=== PATIENT | male | born 1930 | race Caucasian/White ===

== ENCOUNTER 2017-03-10 11:36 | Inpatient (IN) | payer OTHER ==
[~2017-03-10] VITALS: Ht 165.1 cm; Wt 103.4 kg
[~2017-03-10 11:36] MED LIST: ALL300 PO; ASPI81TA21 PO; CALC0.5C17 PO; CARV12.52 PO; CHOL100027 PO; FERR-24 PO; FISHOIL PO; HYDR-5688 PO; ISOS30TA35 PO; LEVO100T7 PO; MULTTAB58 PO; NVLGI7030 SC; OMEP40CA36 PO; SIMV20TA2 PO; TORS20TA2 PO
[2017-03-10] MEDS ORDERED: OXYCODONE HCL IR 5 MG TAB (IMMEDIATE RELEASE) PO STA (12:14)
--- NOTE | 2017-03-10 12:20 | EMERGENCY ROOM VISIT NOTE ---
History First contact with patient: 12:04 Chief Complaint: HIP PAIN Stated Complaint: FALL/EVALUATION History of Present Illness The patient is a 86 year old male who presents to the Emergency Room via ambulance accompanied by male with complaints of "fall/hip pain". The patient states that he is here for hip pain, but also notes that he developed chest pain in the left anterior chest on Thursday, with minimal shortness of breath as well as generalized abdominal fullness. He states that yesterday using his power lift chair, he believes he lifted it up to high, causing him to slide out of the chair falling down onto gluteal region/back. He now notes pain in the right hip. He rates the pain as a 10/10. He has taken [place] this morning without relief of this pain. He denies striking his head, loss of consciousness or syncope. He does have a history of diabetes, bypass, a leaky heart valve, but denies any heart attack history. Review of Systems A complete 10-point Review of Systems was discussed with the patient, with pertinent positives and negatives listed in the History of Present Illness. All remaining Review of Systems questions can be considered negative unless otherwise specified. 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 (15) H/O gastric ulcer (16) Methicillin resistant Staphylococcus aureus infection (17) NII (obstructive sleep apnea) Surgical Problems: (1) History of cholecystectomy (2) History of total hip replacement (3) S/P CABG x 3 (4) S/P cataract surgery Family History Omitted secondary to age Social History Smoking Status: Former Smoker Alcohol Use: none Marital Status: , Housing Status: lives alone Occupation Status: retired Current/Historical Medications Scheduled Allopurinol (Allopurinol), 300 MG PO QAM Aspirin Enteric Coated (Ecotrin Or Generic), 81 MG PO QAM Calcitriol (Rocaltrol Cap), 0.25 MCG PO 2XWK Carvedilol (Coreg), 1 TAB PO DAILY Cholecalciferol (Vitamin D 1000 Unit), 2,000 INTER.UNIT PO QAM Docusate Sodium (Colace), 100 MG PO BID Hydrocodone/Acetaminophen 5MG/325MG ([place] 5MG/325MG), 1 TABLET PO 5XD Insulin Aspart 70/30 (Novolog Mix 70/30), 10 UNITS SC BID Iron-Vitamin C (Vitron-C), 1 TAB PO BID Isosorbide Mononitrate Ext Rel (Imdur Ext Rel), 30 MG PO QAM Levothyroxine Sodium (Levothyroxine Sodium), 100 MCG PO QAM Multiple Vitamin (Multivitamin), 1 TAB PO QAM [place]-3 Fatty Acids (Fish Oil), 1 CAP PO DAILY Omeprazole (Prilosec), 40 MG PO DAILY Simvastatin (Zocor), 20 MG PO QPM Sulfamethoxazole-Trimethoprim (Smz-Tmp Ds), 1 TAB PO BID Torsemide (Demadex), 40 MG PO DAILY Scheduled PRN Trolamine Salicylate (Aspercreme), TOP DAILY PRN for Pain Miscellaneous Medications Menthol-Zinc Oxide (Calmoseptine) Sodium Chloride (Inhalant) (Nasal Mist) Physical Exam Vital Signs Date Time Temp Pulse Resp B/P (MAP) Pulse Ox O2 Delivery O2 Flow Rate FiO2 03/10/17 15:26 97 24 152/63 94 Room Air 03/10/17 13:45 100 18 146/75 94 Room Air 03/10/17 13:03 100 03/10/17 12:23 94 Room Air 03/10/17 11:42 36.8 96 18 110/77 94 Room Air Physical Exam VITAL SIGNS - Vital signs and nursing notes were reviewed. Patient is afebrile , normotensive, non-tachycardic and saturating well on room air at 94%. GENERAL -86-year-old male appearing his stated age who is in no acute distress. Communicates well with provider and answers questions appropriately. SKIN - Without rashes. No petechial rashes. HEAD - NC/AT. EYES - PERRL with EOMI bilaterally. Sclera anicteric. EARS - No deformities of external structures noted on gross examination bilaterally. No pain elicited with palpation of the tragus bilaterally. NOSE - Midline and without cyanosis. No epistaxis or purulent drainage noted. Septum midline without deviation or septal hematoma noted. MOUTH/OROPHARYNX - Without perioral cyanosis. Buccal mucosa pink and moist and without leukoplakia. NECK - Neck with FROM. Supple to palpation. No nuchal rigidity. LUNGS - Chest wall symmetric without accessory muscle use, intercostals retractions, or central cyanosis. Normal vesicular breath sounds CTA B/L. No wheezes, rales, or rhonchi appreciated. CARDIAC - RRR with S1/S2. No murmur, rubs, or gallops appreciated. ABDOMEN - Abdominal contour without pulsations or visible masses. BS normoactive all four quadrants. There is generalized abdominal tenderness, but no palpable masses, hepatosplenomegaly, or ascites noted. EXTREMITIES - No clubbing or peripheral cyanosis. No pretibial edema present. + 5/5 strength noted in UE/LE bilaterally. NEUROLOGIC - Cranial nerves II through XII grossly intact. Sensory intact to light touch throughout. PSYCH - A&Ox3 and cooperates fully with examiner. Pt is very pleasant and interacts well with examiner. Medical Decision & Procedures ER Provider Diagnostic Interpretation: RIGHT PELVIS/UNILATERAL HIP 2-3VIEWS CLINICAL HISTORY: 86 years-old Male presenting with Fall, right hip pain Right. TECHNIQUE: Single frontal view of the pelvis and frontal and frog-leg lateral views of the right hip were obtained. COMPARISON: Correlation made to CT from 2012. FINDINGS: Postsurgical changes of total left hip arthroplasty. Since lucency along the left acetabulum is not significantly changed from 2012. No other hardware complication evident. Advanced, severe degenerative change of the right hip joint with deformity of the femoral head, complete loss of joint space, subchondral sclerosis both of the femoral head and acetabulum and subchondral cystic change. Allowing for the significant deformity, no displaced fracture is apparent. Visualized pelvis demonstrates congruent pubic symphysis and sacroiliac joints. Gaseous distention of colon. Atherosclerosis. IMPRESSION: 1. Allowing for the severe degenerative change in the right hip joint, no convincing evidence of acute fracture. 2. Postsurgical changes of left total hip arthroplasty. Lucency along the acetabulum may suggest osteolysis/particle disease. This appearance is not significantly changed since 2011. Electronically signed by: Sebastián Fulton M.D. 03/10/2017 1:33 PM Dictated Date/Time: 03/10/2017 1:30 PM Laboratory Results 03/10/17 12:36 Red Blood Count 3.88, Mean Corpuscular Volume 98.5, Mean Corpuscular Hemoglobin 32.2, Mean Corpuscular Hemoglobin Concent 32.7, Mean Platelet Volume 12.7, Neutrophils (%) (Auto) 91.0, Lymphocytes (%) (Auto) 3.5, Monocytes (%) (Auto) 4.7, Eosinophils (%) (Auto) 0.1, Basophils (%) (Auto) 0.2, Neutrophils # (Auto) 15.03, Lymphocytes # (Auto) 0.58, Monocytes # (Auto) 0.78, Eosinophils # (Auto) 0.02, Basophils # (Auto) 0.04 03/10/17 12:36 Test 03/10/17 12:21 03/10/17 12:36 Urine Color DK YELLOW Urine Appearance CLOUDY (CLEAR) Urine pH 5.0 (4.5-7.5) Urine Specific [place] 1.026 (1.000-1.030) Urine Protein 2+ (NEG) Urine Glucose (UA) NEG (NEG) Urine Ketones NEG (NEG) Urine Occult Blood TRACE (NEG) Urine Nitrite NEG (NEG) Urine Bilirubin 1+ (NEG) Urine Urobilinogen NEG (NEG) Urine Leukocyte Esterase SMALL (NEG) Urine WBC (Auto) 10-30 /hpf (0-5) Urine RBC (Auto) 0-4 /hpf (0-4) Urine Hyaline Casts (Auto) 10-30 /lpf (0-5) Urine Epithelial Cells (Auto) >30 /lpf (0-5) Urine Bacteria (Auto) NEG (NEG) Urine Renal Epithelial Cells 0-5 /lpf (0-5) Urine Pathogenic Casts 0-3 GRANULAR CASTS /lpf (0) Urine Yeast (Auto) BUD W/ HYPHAE (NONE PRSENT) White Blood Count 16.54 K/uL (4.8-10.8) Red Blood Count 3.88 M/uL (4.7-6.1) Hemoglobin 12.5 g/dL (14.0-18.0) Hematocrit 38.2 % (42-52) Mean Corpuscular Volume 98.5 fL (80-100) Mean Corpuscular Hemoglobin 32.2 pg (25-34) Mean Corpuscular Hemoglobin Concent 32.7 g/dl (32-36) Platelet Count 140 K/uL (130-400) Mean Platelet Volume 12.7 fL (7.4-10.4) Neutrophils (%) (Auto) 91.0 % Lymphocytes (%) (Auto) 3.5 % Monocytes (%) (Auto) 4.7 % Eosinophils (%) (Auto) 0.1 % Basophils (%) (Auto) 0.2 % Neutrophils # (Auto) 15.03 K/uL (1.4-6.5) Lymphocytes # (Auto) 0.58 K/uL (1.2-3.4) Monocytes # (Auto) 0.78 K/uL (0.11-0.59) Eosinophils # (Auto) 0.02 K/uL (0-0.5) Basophils # (Auto) 0.04 K/uL (0-0.2) RDW Standard Deviation 52.0 fL (36.4-46.3) RDW Coefficient of Variation 14.7 % (11.5-14.5) Immature Granulocyte % (Auto) 0.5 % Immature Granulocyte # (Auto) 0.09 K/uL (0.00-0.02) Prothrombin Time 11.5 SECONDS (9.0-12.0) Prothromb Time International Ratio 1.1 (0.9-1.1) Activated Partial Thromboplast Time 29.2 SECONDS (21.0-31.0) Partial Thromboplastin Ratio 1.1 Anion Gap 7.0 mmol/L (3-11) Est Creatinine Clear Calc Drug Dose 27.2 ml/min Estimated GFR () 30.5 Estimated GFR (Non- 26.3 BUN/Creatinine Ratio 14.7 (10-20) Calcium Level 9.4 mg/dl (8.5-10.1) Magnesium Level 1.9 mg/dl (1.8-2.4) Total Bilirubin 0.8 mg/dl (0.2-1) Aspartate Amino Transf (AST/SGOT) 30 U/L (15-37) Alanine Aminotransferase (ALT/SGPT) 43 U/L (12-78) Alkaline Phosphatase 222 U/L (45-117) Total Creatine Kinase 82 U/L (39-308) Pro-B-Type Natriuretic Peptide 53650 pg/ml (0-1800) Total Protein 7.0 gm/dl (6.4-8.2) Albumin 3.0 gm/dl (3.4-5.0) Globulin 4.0 gm/dl (2.5-4.0) Albumin/Globulin Ratio 0.8 (0.9-2) Thyroid Stimulating Hormone (TSH) 0.918 uIu/ml (0.300-4.500) Medications Administered Medications (Trade) Dose Ordered Sig/Leonarda Route Start Time Stop Time Status Last Admin Dose Admin Oxycodone HCl (Roxicodone Immediate Rel Tab) 5 mg NOW STAT PO 03/10/17 12:14 03/10/17 12:17 DC 03/10/17 12:14 5 MG Aspirin (Aspirin Chew) 162 mg NOW STAT PO 03/10/17 14:57 03/10/17 14:59 DC 03/10/17 15:26 162 MG Medical Decision Patient was seen and evaluated as above. After obtaining a thorough history and physical examination IV access was initiated, and the above workup was performed. The patient presented to us today with hip pain, but also chest pain , shortness of breath and fluid overload. Patient does take Lasix, but did not take his dose today. His bedside EKG does appear slightly changed compared to previous, reveals wide QRS, left axis deviation, right bundle-branch block, and concern for LVH. No active [facility] [place] this time. The troponin is elevated, 160 mg of chewable aspirin was ordered. BNP was also above 19,000. Chest x-ray and abdominal series is negative for central acute process. The concern at this time is that the patient will need further evaluation inpatient setting regarding his presentation. Right radiographs unremarkable. CBC reveals significant leukocytosis at 16.54, hemoglobin low at 12.5. Coags unremarkable. BMP reveals sodium low at 131, chloride low at 96, creatinine high at 2.2, random glucose high at 261, alkaline phosphatase high at 222, BNP at 19,670. Troponin again at 0.168. Urine reveals small leukocytosis, white blood cells, hyalin casts, epithelial cells likely secondary to contamination. The case was discussed with the attending physician, the decision was made to admit the patient for further evaluation and management. I also consult cardiology to further evaluate the patient over concern for [facility] [place]. Dr. Thao was consult at 3:15 PM. Please refer to further documentation regarding the patient's stay. In evaluation treatment this patient following differential diagnoses were entertained: Hip fracture, contusion, AL, PE, CHF exacerbation, among others. I personally reviewed the patient's medication list. The patient's blood pressure today was normal at 110/77. Impression Primary Impression: Hip pain Additional Impressions: Chest pain Anemia Shortness of breath Elevated brain natriuretic peptide (BNP) level Troponin I above reference range Departure Information Referrals Rl Benitez M.D. (PCP) Patient Instructions My [facility] Problem Qualifiers
[2017-03-10 12:36] LABS: URINE APPEARANCE CLOUDY (CLEAR); URINE COLOR DK YELLOW; URINE EPITHELIAL CELL AUTO >30 /lpf (0-5); URINE NITRITE NEG (NEG); URINE SPECIFIC GRAVITY 1.026 (1.000-1.030); UROBILINOGEN NEG (NEG); ZZUR CULT IF INDIC CLEAN CATCH YES
[2017-03-10 12:47] LABS: HEMATOCRIT 38.2 % (42-52); MEAN CELL VOLUME 98.5 fL (80-100); MEAN CORPUSCULAR HEMOGLOBIN 32.2 pg (25-34); MEAN CORPUSCULAR HGB CONC 32.7 g/dl (32-36); MEAN PLATELET VOLUME 12.7 fL (7.4-10.4); PLATELET COUNT 140 K/uL (130-400); RED BLOOD COUNT 3.88 M/uL (4.7-6.1); WHITE BLOOD COUNT 16.54 K/uL (4.8-10.8)
[2017-03-10 12:52] LABS: MANUAL MICROSCOPIC REQUIRED? NO; REVIEW REQ? YES; URINE BILIRUBIN 1+ (NEG)
[2017-03-10] MEDS ORDERED: DOCU-94 PO (12:55)
[2017-03-10] MEDS ORDERED: TROL10LO TOP (12:55)
[2017-03-10] MEDS ORDERED: [UNRECOGNIZED DRUG - CODE] (12:55)
[2017-03-10] MEDS ORDERED: CALC0.25 PO (12:55)
[2017-03-10] MEDS ORDERED: SULF-183 PO (12:55)
[2017-03-10] MEDS ORDERED: MENTOIN (12:55)
[2017-03-10] MEDS ORDERED: FERRTAB18 PO (12:55)
[2017-03-10] MEDS ORDERED: OMEP40CA41 PO (12:55)
[2017-03-10] MEDS ORDERED: OMEGCAP2 PO (12:55)
[2017-03-10 12:58] LABS: INR 1.1 (0.9-1.1); PARTIAL THROMBOPLASTIN RATIO 1.1; PROTHROMBIN TIME (PATIENT) 11.5 SECONDS (9.0-12.0)
[2017-03-10 13:03] LABS: URINE PATH CASTS 0-3 GRANULAR CASTS /lpf (0)
[2017-03-10 13:05] LABS: BUN/CREATININE RATIO 14.7 (10-20); CALCIUM 9.4 mg/dl (8.5-10.1); CREATININE 2.2 mg/dl (0.60-1.40); MAGNESIUM 1.9 mg/dl (1.8-2.4); POTASSIUM 4.3 mmol/L (3.5-5.1)
[2017-03-10 13:08] LABS: BASO % 0.2 %; BASO ABS # 0.04 K/uL (0-0.2); COMPLETE YES; EOS % 0.1 %; IG% 0.5 %; LYMPH % 3.5 %; LYMPH ABS # 0.58 K/uL (1.2-3.4); MONO % 4.7 %
[2017-03-10 13:15] LABS: ALB/GLOB RATIO 0.8 (0.9-2); CKMB/CK RATIO 1.5 (0-3.0); THYROID STIMULATING HORMONE 0.918 uIu/ml (0.300-4.500)
--- NOTE | 2017-03-10 13:34 | DIAGNOSTIC IMAGING REPORT ---
RIGHT PELVIS/UNILATERAL HIP 2-3VIEWS CLINICAL HISTORY: 86 years-old Male presenting with Fall, right hip pain Right. TECHNIQUE: Single frontal view of the pelvis and frontal and frog-leg lateral views of the right hip were obtained. COMPARISON: Correlation made to CT from 2012. FINDINGS: Postsurgical changes of total left hip arthroplasty. Since lucency along the left acetabulum is not significantly changed from 2012. No other hardware complication evident. Advanced, severe degenerative change of the right hip joint with deformity of the femoral head, complete loss of joint space, subchondral sclerosis both of the femoral head and acetabulum and subchondral cystic change. Allowing for the significant deformity, no displaced fracture is apparent. Visualized pelvis demonstrates congruent pubic symphysis and sacroiliac joints. Gaseous distention of colon. Atherosclerosis. IMPRESSION: 1. Allowing for the severe degenerative change in the right hip joint, no convincing evidence of acute fracture. 2. Postsurgical changes of left total hip arthroplasty. Lucency along the acetabulum may suggest osteolysis/particle disease. This appearance is not significantly changed since 2012. Electronically signed by: Sebastián Fulton M.D. 03/10/2017 1:33 PM Dictated Date/Time: 03/10/2017 1:30 PM
--- NOTE | 2017-03-10 13:45 | DIAGNOSTIC IMAGING REPORT ---
ABDOMEN 2VIEW W/PA CHEST RTN HISTORY: 86 years-old Male Chest pain, abdominal fullness COMPARISON: Portable chest radiograph 09/09/2015, CT 01/26/2012 TECHNIQUE: AP, left lateral decubitus and supine views of the abdomen were obtained FINDINGS: Cardiac silhouette is again moderately enlarged. There is tortuosity and atherosclerosis of the thoracic aorta. Prior median sternotomy. There is no pneumothorax. There is chronic blunting of the right costophrenic angle with right hemidiaphragmatic elevation suggesting underlying scarring/atelectasis. There is suggested subsegmental atelectasis of the left lung base. Mild central vascular congestion persists without overt pulmonary edema. No pneumoperitoneum identified. There is mild gaseous distention of both small and large bowel with a nonobstructive bowel gas pattern. Phleboliths are seen within the pelvis. Calcifications are seen within the midabdomen bilaterally within the expected region of the kidneys suggesting nephrolithiasis. Left hip arthroplasty noted. There is severe joint space narrowing on the right with subcortical cystic changes and subchondral sclerosis. Vascular calcifications are seen bilaterally. IMPRESSION: 1. Moderate cardiomegaly with mild pulmonary vascular congestion. No overt pulmonary edema. 2. Chronic bibasilar scarring/atelectasis with right hemidiaphragmatic elevation. 3. Gaseous distention of small and large bowel without bowel obstruction or pneumoperitoneum. 4. Probable bilateral nephrolithiasis. 5. Severe degenerative changes of the right hip. The above report was generated using voice recognition software. It may contain grammatical, syntax or spelling errors. Electronically signed by: Ludin Can M.D. 03/10/2017 1:43 PM Dictated Date/Time: 03/10/2017 1:38 PM
[2017-03-10] MEDS ORDERED: ASPIRIN 81 MG CHEW PO STA (14:57)
[2017-03-10] MEDS ORDERED: ACETAMINOPHEN 325 MG TAB PO PRN (16:15)
[2017-03-10] MEDS ORDERED: ONDANSETRON INJ 2 MG/ML 2 ML VIAL IV PRN (16:15)
[2017-03-10] MEDS ORDERED: NITROGLYCERIN 0.4 MG SL PER TAB CHARGE SL PRN (16:15)
--- NOTE | 2017-03-10 16:35 | CARDIOLOGY CONSULTATION ---
DATE OF CONSULTATION: 03/10/2017 DATE OF CONSULTATION: 03/10/2017 REFERRING PHYSICIAN: Sergey Soliman. INDICATIONS: Weakness, falls, abnormal laboratory studies. HISTORY OF PRESENT ILLNESS: The patient is a complex 86-year-old male with past cardiac history of ischemic heart disease, status post coronary bypass grafting x3 in 2000, receiving a MORALES graft to the left anterior descending, saphenous vein graft to the obtuse marginal, saphenous vein graft to the right coronary artery, history of chronic atrial flutter with borderline tachybrady syndrome not anticoagulated due to multiple issues, moderate atherosclerotic carotid disease, chronic renal insufficiency, chronic anemia, hypertension, hyperlipidemia and diabetes mellitus as list of multiple issues. The patient presents now noting gradual decline over the past several weeks. He notes a fall x2 approximately 3 weeks ago with injury to his right hip and shoulder. He was initially treated for his fall and begun on physical therapies. In the course of evaluation, he was also treated for hemorrhagic cystitis on antibiotic therapies per reports. The patient, however, over the last 2-3 days has been feeling more weak with poor p.o. intake and lack of appetite. Notes no overt fevers or chills. Last evening while using a lift chair to urinate he fell from lift chair and suffered additional injuries. He was scheduled to be seen by physicians today but was "too weak to stand". He was referred to the Emergency Room for further evaluation. He notes chest pains and aches with movement. Notes no distinct anginal symptoms. Has had some increasing lower extremity and flank and leg edema. Weight has been unable to be weighed since fall 3 weeks ago. He has been taking medications as prescribed, though was having difficulty taking antibiotics as well as some of his heart medications due to poor p.o. intake. Notes no overt fevers, notes no melena, hematochezia, dysuria or hematuria. Notes no headache or visual changes. Has had some burning on urination which has eased but not completely relieved with recent antibiotic therapy. ALLERGIES: PENICILLIN. MEDICATIONS: Per list were Bactrim-DS 800/160 one tablet b.i.d. begun on 03/02/2017 for 10-day duration, hydrocodone p.r.n. pain on 02/22/2017, allopurinol 300 mg p.o. daily, levothyroxine 100 mcg per day, torsemide 40 mg daily, isosorbide mononitrate 30 mg daily, simvastatin 20 mg p.o. daily, Vitron C 65/125 q. day, omeprazole 40 mg p.o. q. day, Rocaltrol 0.25 mcg every day, carvedilol 3.125 mg q. day, oxygen 2 liters nasal cannula, Novolin insulin 70/30 10 units twice per day, aspirin 81 mg per day, vitamin D and fish oil supplements. PAST SURGICAL HISTORY: Notable for prior cataract extraction, cholecystectomy, left total hip replacement. FAMILY HISTORY: Noncontributory. SOCIAL HISTORY: The patient resides independently with son. He is a nonsmoker but with a [id number] history discontinued in 1964. Uses no significant alcoholic beverages. Attempts to follow diet appropriately, though as noted recent oral intake declined. PHYSICAL EXAMINATION: GENERAL: The patient is a chronically ill appearing male without acute distress currently. VITAL SIGNS: Heart rate is 97, blood pressure is 152/63. NECK: Thick. There is mild jugular venous distention at 30 degrees. LUNGS: Reveal diminished breath sounds in all lung ybarra. CARDIOVASCULAR EXAMINATION: Irregularly irregular with a grade 2/6 systolic murmur. ABDOMEN: Soft with moderate distention. There is no rebound or guarding. EXTREMITIES: Without cyanosis or clubbing. Lower extremities reveal 2-3+ edema both lower extremities extending up to the hips. There are intact distal pulses at 2/4. There is no skin breakdown. NEUROLOGIC: The patient is answering questions, moving extremities with some weakness, no focal deficits discerned. LABORATORY DATA: White cell count 16.5, hemoglobin is 12.5, hematocrit 38.2, platelet count 140. Sodium is 131, potassium is 4.3, chloride 96, bicarb is 28, BUN is 32, creatinine is 2.2, glucose is 261, AST and ALT are normal. BNP is elevated at 19,671, troponin is 0.168. TSH is 0.918. Chest x-ray on personal review reveals cardiomegaly, mild increase in interstitial markings, though no overt pulmonary edema. Abdominal films reveal distention of the small and large bowel without obstruction. EKG reveals atrial flutter with elevated ventricular response rate, rate 104 with right bundle branch block, left anterior fascicular block. IMPRESSION: The patient is an 86-year-old male with a very complex histories presents now with gradual acute on gradual decline been initiated initially with 2 falls 3 weeks ago followed by an additional fall last evening, now patient presents now with main complaint being weakness, unable to stand, generalized decline over the several days. He does admit to some occasional episodes of chest discomfort as well as some increasing lower extremity edema and abdominal bloating. Lab work is abnormal with mildly elevated troponin, though possibly in association with elevated creatinine. BNP is elevated, though x-ray does not suggest overt pulmonary edema, lower extremity edema is present. RECOMMENDATIONS: Will treat for multifactorial decline. Would recommend cultures given elevated white cell count to exclude ongoing infectious process. Would increase carvedilol cautiously to 3.125 mg twice per day given history of past borderline tachybrady for heart rate control. A small amount of diuretics will be begun initially. Echocardiogram will be ordered. Serial enzymes and EKGs followed. The patient appears agreeable to plan. Will follow the patient.
[2017-03-10] MEDS ORDERED: CARV3.122 PO (16:39)
[2017-03-10] MEDS ORDERED: DEXTROSE 50% 50 ML SYR IV PRN (17:15)
[2017-03-10] MEDS ORDERED: GLUCOSE 10 TABS/TUBE PO PRN (17:15)
[2017-03-10] MEDS ORDERED: GLUCOSE 40% GEL 15 GM TUBE PO PRN (17:15)
[2017-03-10] MEDS ORDERED: GLUCAGON FOR INJ 1 MG VIAL SQ PRN (17:15)
[2017-03-10] MEDS ORDERED: FUROSEMIDE INJ 40 MG in SYRINGE 0 ML IV ONE (18:15)
[2017-03-10 18:44] VITALS: BP 174/99; PULSE 98; TEMP 36.8; O2SAT 91
--- NOTE | 2017-03-10 19:21 | History and Physical ---
History & Physical Date & Time of Service: Mar 10, 2017 ~ 16:00 Chief Complaint: Fall Primary Care Physician: Rl Benitez M.D. History of Present Illness 86 year old male who presents to the ER after a fall and generalized weakness. Patient is somewhat a poor historian. Patient had a fall in the bathroom a few weeks ago. He reports progressive weakness since that time. Last night he was trying to get out of his recliner and he fell to the ground. He denies loss of coconsciousness or striking his head. No associated lightheadedness, dizziness, or chest pain. He called for his son who helped him back into the chair. Patient was to see his PCP today however was too weak to stand so EMS was called. Patient was started on Bactrim last week for possible UTI. Outpatient urine was not obtained. Patient has chronic lower extremity edema from lymphedema and uses pumps nightly. Son feels as though swelling was doing good until he fell last night. Patient reports chronic shortness of breath. He does not feel as though it is any worse than his baseline. He has had a cough productive for cream colored sputum. He has had a poor appetite the past few days. He denies abdominal pain, nausea, vomiting, or diarrhea. In the ER, WBC is 16K, troponin is mildly elevated, proBNP is elevated. Vitals are stable. EKG does not show any acute ST changes. Patient was given two baby aspirin and one oxycodone tablet. Xrays are negative for fractures. Past Medical/Surgical History Medical Problems: (1) Abscess of liver Permanent Comment: January 2012 Status: Resolved (2) Anemia Status: Chronic (3) Aortic stenosis Permanent Comment: echo 2014 - EF 55-59%, moderate , mild TR Status: Chronic (4) Atrial flutter Status: Chronic (5) Benign hypertension Status: Chronic (6) Carotid stenosis Permanent Comment: 2012 - right ICA 50% stenosis; left ICA 50-69% stenosis Status: Chronic (7) Chronic osteoarthritis Status: Chronic (8) CKD (chronic kidney disease), stage III Status: Chronic (9) Coronary artery disease Status: Chronic (10) Diabetes mellitus type 2 Status: Chronic (11) Dyslipidemia Status: Chronic (12) GERD (gastroesophageal reflux disease) Status: Chronic (13) Gout Status: Chronic (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 (15) H/O gastric ulcer Status: Chronic (16) Methicillin resistant Staphylococcus aureus infection Permanent Comment: UTI January 2012 Status: Resolved (17) NII (obstructive sleep apnea) Status: Chronic Surgical Problems: (1) History of cholecystectomy Status: Chronic (2) History of total hip replacement Status: Chronic (3) S/P CABG x 3 Permanent Comment: 2000 Status: Chronic (4) S/P cataract surgery Status: Chronic Family History noncontributory due to patient's advanced age Social History Smoking Status: Former Smoker Alcohol Use: none Housing status: lives alone Immunizations History of Influenza Vaccine: Yes Influenza Vaccine Date: Jun 04, 2016 History of Tetanus Vaccine?: Yes Tetanus Immunization Date: Feb 10, 2011 History of Pneumococcal: Yes Pneumococcal Date: Mar 13, 2015 Multi-Drug Resistant Organisms History of MDRO: Yes Type of MDRO: MRSA Allergies Coded Allergies: Penicillins (Verified Allergy, Intermediate, hives, 03/10/17) Home Medications Scheduled Allopurinol (Allopurinol), 300 MG PO QAM Aspirin Enteric Coated (Ecotrin Or Generic), 81 MG PO QAM Calcitriol (Rocaltrol Cap), 0.25 MCG PO 2XWK Carvedilol (Coreg), 1 TAB PO DAILY Cholecalciferol (Vitamin D 1000 Unit), 2,000 INTER.UNIT PO QAM Docusate Sodium (Colace), 100 MG PO BID Hydrocodone/Acetaminophen 5MG/325MG ([place] 5MG/325MG), 1 TABLET PO 5XD Insulin Aspart 70/30 (Novolog Mix 70/30), 10 UNITS SC BID Iron-Vitamin C (Vitron-C), 1 TAB PO BID Isosorbide Mononitrate Ext Rel (Imdur Ext Rel), 30 MG PO QAM Levothyroxine Sodium (Levothyroxine Sodium), 100 MCG PO QAM Multiple Vitamin (Multivitamin), 1 TAB PO QAM [place]-3 Fatty Acids (Fish Oil), 1 CAP PO DAILY Omeprazole (Prilosec), 40 MG PO DAILY Simvastatin (Zocor), 20 MG PO QPM Sulfamethoxazole-Trimethoprim (Smz-Tmp Ds), 1 TAB PO BID Torsemide (Demadex), 40 MG PO DAILY Scheduled PRN Trolamine Salicylate (Aspercreme), TOP DAILY PRN for Pain Miscellaneous Medications Menthol-Zinc Oxide (Calmoseptine) Sodium Chloride (Inhalant) (Nasal Mist) Review of Systems ROS per HPI, all other systems reviewed and negative Physical Exam Vital Signs Date Time Temp Pulse Resp B/P (MAP) Pulse Ox O2 Delivery O2 Flow Rate FiO2 03/10/17 16:58 102 24 133/77 96 Room Air 03/10/17 16:45 96 03/10/17 15:26 97 24 152/63 94 Room Air 03/10/17 13:45 100 18 146/75 94 Room Air 03/10/17 13:03 100 03/10/17 12:23 94 Room Air 03/10/17 11:42 36.8 96 18 110/77 94 Room Air General Appearance: no apparent distress Head: normocephalic, atraumatic Eyes: normal inspection, sclerae normal ENT: hearing grossly normal Neck: supple, no JVD Respiratory/Chest: no respiratory distress, + decreased breath sounds Cardiovascular: regular rate, rhythm, + pertinent finding (+2-3 edema BLLE, L > R ) Abdomen/GI: normal bowel sounds, non tender, soft Extremities/Musculoskelatal: normal inspection, no calf tenderness Neurologic/Psych: no motor/sensory deficits, alert, normal mood/affect, oriented x 3 Skin: normal color, warm/dry Diagnostics Laboratory Results Results Past 24 Hours Test 03/10/17 12:21 03/10/17 12:36 03/10/17 18:00 Range/Units Urine Color DK YELLOW Urine Appearance CLOUDY CLEAR Urine pH 5.0 4.5-7.5 Urine Specific [place] 1.026 1.000-1.030 Urine Protein 2+ NEG Urine Glucose (UA) NEG NEG Urine Ketones NEG NEG Urine Occult Blood TRACE NEG Urine Nitrite NEG NEG Urine Bilirubin 1+ NEG Urine Urobilinogen NEG NEG Urine Leukocyte Esterase SMALL NEG Urine WBC (Auto) 10-30 0-5 /hpf Urine RBC (Auto) 0-4 0-4 /hpf Urine Hyaline Casts (Auto) 10-30 0-5 /lpf Urine Epithelial Cells (Auto) >30 0-5 /lpf Urine Bacteria (Auto) NEG NEG Urine Renal Epithelial Cells 0-5 0-5 /lpf Urine Pathogenic Casts 0-3 GRANULAR CASTS 0 /lpf Urine Yeast (Auto) BUD W/ HYPHAE NONE PRSENT White Blood Count 16.54 4.8-10.8 K/uL Red Blood Count 3.88 4.7-6.1 M/uL Hemoglobin 12.5 14.0-18.0 g/dL Hematocrit 38.2 42-52 % Mean Corpuscular Volume 98.5 80-100 fL Mean Corpuscular Hemoglobin 32.2 25-34 pg Mean Corpuscular Hemoglobin Concent 32.7 32-36 g/dl Platelet Count 140 130-400 K/uL Mean Platelet Volume 12.7 7.4-10.4 fL Neutrophils (%) (Auto) 91.0 % Lymphocytes (%) (Auto) 3.5 % Monocytes (%) (Auto) 4.7 % Eosinophils (%) (Auto) 0.1 % Basophils (%) (Auto) 0.2 % Neutrophils # (Auto) 15.03 1.4-6.5 K/uL Lymphocytes # (Auto) 0.58 1.2-3.4 K/uL Monocytes # (Auto) 0.78 0.11-0.59 K/uL Eosinophils # (Auto) 0.02 0-0.5 K/uL Basophils # (Auto) 0.04 0-0.2 K/uL RDW Standard Deviation 52.0 36.4-46.3 fL RDW Coefficient of Variation 14.7 11.5-14.5 % Immature Granulocyte % (Auto) 0.5 % Immature Granulocyte # (Auto) 0.09 0.00-0.02 K/uL Prothrombin Time 11.5 9.0-12.0 SECONDS Prothromb Time International Ratio 1.1 0.9-1.1 Activated Partial Thromboplast Time 29.2 21.0-31.0 SECONDS Partial Thromboplastin Ratio 1.1 Sodium Level 131 136-145 mmol/L Potassium Level 4.3 3.5-5.1 mmol/L Chloride Level 96 98-107 mmol/L Carbon Dioxide Level 28 21-32 mmol/L Anion Gap 7.0 3-11 mmol/L Blood Urea Nitrogen 32 7-18 mg/dl Creatinine 2.20 0.60-1.40 mg/dl Est Creatinine Clear Calc Drug Dose 27.2 ml/min Estimated GFR () 30.5 Estimated GFR (Non- 26.3 BUN/Creatinine Ratio 14.7 10-20 Random Glucose 261 70-99 mg/dl Calcium Level 9.4 8.5-10.1 mg/dl Magnesium Level 1.9 1.8-2.4 mg/dl Total Bilirubin 0.8 0.2-1 mg/dl Aspartate Amino Transf (AST/SGOT) 30 15-37 U/L Alanine Aminotransferase (ALT/SGPT) 43 12-78 U/L Alkaline Phosphatase 222 45-117 U/L Total Creatine Kinase 82 39-308 U/L Creatine Kinase MB 1.2 0.5-3.6 ng/ml Creatine Kinase MB Ratio 1.5 0-3.0 Troponin I 0.168 0-0.045 ng/ml Pro-B-Type Natriuretic Peptide 27225 0-1800 pg/ml Total Protein 7.0 6.4-8.2 gm/dl Albumin 3.0 3.4-5.0 gm/dl Globulin 4.0 2.5-4.0 gm/dl Albumin/Globulin Ratio 0.8 0.9-2 Thyroid Stimulating Hormone (TSH) 0.918 0.300-4.500 uIu/ml Microbiology Results 03/10/17 Blood Culture, Received Pending 03/10/17 Blood Culture, Received Pending 03/10/17 Urine Culture, Received Pending Diagnostic Radiology HIP/PELVIS XR IMPRESSION: 1. Allowing for the severe degenerative change in the right hip joint, no convincing evidence of acute fracture. 2. Postsurgical changes of left total hip arthroplasty. Lucency along the acetabulum may suggest osteolysis/particle disease. This appearance is not significantly changed since 2011. CHEST/ABD XR IMPRESSION: 1. Moderate cardiomegaly with mild pulmonary vascular congestion. No overt pulmonary edema. 2. Chronic bibasilar scarring/atelectasis with right hemidiaphragmatic elevation. 3. Gaseous distention of small and large bowel without bowel obstruction or pneumoperitoneum. 4. Probable bilateral nephrolithiasis. 5. Severe degenerative changes of the right hip. Impression Assessment and Plan FALLS, GENERALIZED WEAKNESS - admit to tele - patient presenting with generalized weakness and two falls within the past two weeks, most recent fall last night and unable to get up from chair today - falls appear to be mechanical without signs of CVA or syncope - likely multifactorial due to physical deconditioning, possible UTI, URI, and mild volume overload which will be described below - PT/OT, case management consult for possible placement AORTIC STENOSIS, MILD VOLUME OVERLOAD - echo 2014 showed moderate - patient reporting increasing BLLE edema and abdominal distention (abdominal distention likely from constipation and not volume overload - will start bowel regimen) - will update echo - Lasix 40mg IV x 1 - reassess further need for diuresis in the morning POSSIBLE UTI, URI - was started on Bactrim last week for foul smelling urine; patient also reports productive cough - WBC 16K; do not suspect sepsis - urine and blood cultures - will place empirically on Rocephin and Doxycycline ATRIAL FLUTTER - rate controlled on low dose beta bhavya due to history of tachybrady - not anticoagulated due to fall risk - HR in the 90s-low 100s - discussed with Dr. Thao, will cautiously increase carvedilol from 3.125mg from daily to BID HX CAD S/P CABG - EKG without acute ST changes - mild troponin elevation likely due to underlying CKD and acute illness - continue to cycle cardiac enzymes - continue ASA, nitrate, beta bhavya, and statin DM - hgb a1c 7.4 01/2017 - will hold 70/30 insulin and utilize SSI while hospitalized CKD STAGE III - baseline creat runs in the high 1's - low 2's - creat noted to be 2.2 today - continue to monitor, avoid nephrotoxic agents when able HYPOTHYROIDISM - continue levothyroxine DVT PROPHYLAXIS - SQ Heparin CODE STATUS - Patient is a DNR as per my discussion with patient's daughter and Mary Ann ALEGRE. DISPO - In my clinical judgment this beneficiary meets acute admission criteria, established by [facility], that includes being hospitalized through two midnights. I have seen and examined the patient and agree with the assessment and plan as stated above. Of note, there is a Stg I sacral wound with chafing noted on admission. Order given to place Optifoam and turn patient q2hrs. Apprec wound care assistance. [place], Level of Care Telemetry Resuscitation Status DO NOT RESUSCITATE VTE Prophylaxis VTE Risk Assessment Done? Y/N: Yes Risk Level: Moderate Given or contraindicated: Unfractionated heparin SQ Social Service Consult >80 yr.& Lives Alone
[2017-03-10] MEDS: CEFTRIAXONE SOD INJ 1 GM in DEXTROSE 5% ADD-VANTAGE 50ML 50 ML IV SCH (20:06)
[2017-03-10] MEDS: DOXYCYCLINE IV 100 MG in DEXTROSE 5% 100ML 100 ML IV SCH (20:06)
[2017-03-10 20:46] VITALS: BP 183/97; PULSE 102; TEMP 36.7; O2SAT 96
[2017-03-10] MEDS: SIMVASTATIN 20 MG TAB PO SCH (20:52)
[2017-03-10] MEDS: INSULIN ASPART 100 UNITS/ML 3 ML PEN SC SCH (20:52)
[2017-03-10] MEDS: POLYETHYLENE (MIRALAX) 17 GM PACK PO SCH (20:53)
[2017-03-10] MEDS: DOCUSATE SODIUM 100 MG CAP PO SCH (20:53)
[2017-03-10] MEDS: CARVEDILOL 3.125 MG TAB PO SCH ×2 (20:53→21:45)
[2017-03-10] MEDS: HEPARIN SOD 5000 UNIT/0.5 ML CARP SQ SCH (21:45)
[2017-03-10 21:54] VITALS: BP 183/97; PULSE 102; TEMP 36.7; BMI 38.1
[2017-03-10] MEDS ORDERED: HYDROCODONE/ACETAMOPHEN 5/325MG TAB PO STA (22:13)
[2017-03-10 23:27] VITALS: BP 151/99; PULSE 80; TEMP 36.8; O2SAT 96
[2017-03-11 04:14] VITALS: BP 157/74; PULSE 97; TEMP 37; O2SAT 98
[2017-03-11] MEDS: LEVOTHYROXINE 100 MCG TAB PO SCH (06:21)
[2017-03-11] MEDS: HYDROCODONE/ACETAMOPHEN 5/325MG TAB PO PRN ×2 (06:21→23:51)
[2017-03-11] MEDS: HEPARIN SOD 5000 UNIT/0.5 ML CARP SQ SCH ×3 (06:23→20:49)
[2017-03-11 06:33] LABS: HEMATOCRIT 36.5 % (42-52); MEAN CELL VOLUME 98.6 fL (80-100); MEAN CORPUSCULAR HGB CONC 33.4 g/dl (32-36); MEAN PLATELET VOLUME 11.6 fL (7.4-10.4); PLATELET COUNT 126 K/uL (130-400); WHITE BLOOD COUNT 16.59 K/uL (4.8-10.8)
[2017-03-11 07:04] LABS: CREATININE 2.1 mg/dl (0.60-1.40)
[2017-03-11 07:05] LABS: BUN/CREATININE RATIO 17.6 (10-20); MAGNESIUM 1.9 mg/dl (1.8-2.4); POTASSIUM 4.4 mmol/L (3.5-5.1)
[2017-03-11] MEDS: ISOSORBIDE MONONITRATE 30 MG TABCR PO SCH (07:26)
[2017-03-11] MEDS: ASPIRIN 81 MG ECTAB PO SCH (07:26)
[2017-03-11] MEDS: ALLOPURINOL 300 MG TAB PO SCH (07:26)
[2017-03-11] MEDS: CARVEDILOL 3.125 MG TAB PO SCH ×2 (07:27→20:45)
[2017-03-11] MEDS: CHOLECALCIFEROL 1000 INTER.UNIT TAB PO SCH (07:27)
[2017-03-11] MEDS: MULTIVITAMIN TAB PO SCH (07:27)
[2017-03-11] MEDS: PANTOprazole SOD 40 MG TAB PO SCH (07:27)
[2017-03-11] MEDS: OMEGA-3 (PURIFIED FISH OIL) 1 GM CAP PO SCH (07:27)
[2017-03-11] MEDS: DOCUSATE SODIUM 100 MG CAP PO SCH ×2 (07:27→20:45)
[2017-03-11] MEDS: POLYETHYLENE (MIRALAX) 17 GM PACK PO SCH (07:28)
[2017-03-11] MEDS: DOXYCYCLINE IV 100 MG in DEXTROSE 5% 100ML 100 ML IV SCH ×2 (07:32→18:14)
[2017-03-11 08:06] VITALS: BP 130/65; PULSE 97; TEMP 36.8; O2SAT 95
[2017-03-11] MEDS ORDERED: FUROSEMIDE INJ 40 MG in SYRINGE 0 ML IV STA (09:32)
[2017-03-11] MEDS: INSULIN ASPART 100 UNITS/ML 3 ML PEN SC SCH ×4 (10:00→20:48)
--- NOTE | 2017-03-11 10:10 | CARDIOLOGY PROGRESS NOTE ---
DATE: 03/11/2017 DATE: 03/11/2017 The patient seen and examined. Chart, medications, telemetry reviewed. SUBJECTIVE: The patient notes no abrupt change from day prior. Did not sleep well last night. Blood pressures are trending slightly lower. Notes no chest pains, does have right hip pain and mild abdominal discomfort. Notes no overt dysuria. Has had issues with constipation and has not moved bowels. The patient has been afebrile. OBJECTIVE: VITAL SIGNS: Heart rate is improved 80-97, blood pressure is 130/65. NECK: Thin. There is no jugular venous distention at 30 degrees. LUNGS: Reveal mildly diminished breath sounds. CARDIOVASCULAR EXAMINATION: Irregular irregular with a grade 2-3/6 systolic murmur. ABDOMEN: Soft with mild tenderness on deep palpation. No rebound or guarding. EXTREMITIES: Without cyanosis or clubbing. There is bilateral lower extremity edema, improved from day prior. Predominantly through elevation feet and wrapping. LABORATORY DATA: White cell count 16.5, hemoglobin is 12.2. Sodium is 131, potassium is 4.4, chloride 96, bicarb is 27, BUN is 37, creatinine 2.1. Troponin since admission have been flat at 0.15. DATA: EKG today reveals atrial flutter with variable conduction rate with right bundle branch block to anterior fascicular block. Cultures are pending as is echocardiogram. Telemetry reveals no bradyarrhythmias or pauses. IMPRESSION: An 86-year-old complex male presents now noting general decline over the past 2-3 weeks with multiple falls. Troponins are mildly elevated though consistent with renal disease and not in a pattern consistent with acute ischemic event. Echocardiogram to be reviewed. Lower extremity edema noted as well as elevated white cell count. He is on empiric antibiotic therapies. PLAN: Will be to cautiously add furosemide once again at 40 mg IV today following renal function and lower extremity edema. If blood pressures appear to allow will continue other medications as originally ordered including isosorbide and carvedilol. Will follow patient in the hospital. JUAN
--- NOTE | 2017-03-11 10:22 | Progress Note ---
Subjective Date of Service: Mar 11, 2017. Subjective Pt evaluation today including: conversation w/ patient, physical exam, lab review, review of studies, review of inpatient medication list Saw/examined the patient in room 208 States he fell a few times at home while in a lift chair uses walker for ambulation at baseline lives alone Denies chest pain or shortness of breath Problem List Medical Problems: (1) Acute exacerbation of CHF (congestive heart failure) Status: Acute (2) Acute renal failure (ARF) Status: Acute (3) Anemia Status: Acute (4) Chest pain Status: Acute (5) Elevated brain natriuretic peptide (BNP) level Status: Acute (6) Hip pain Status: Acute (7) Shortness of breath Status: Acute (8) Troponin I above reference range Status: Acute Review of Systems Constitutional: + weakness, No fever, No chills Respiratory: + cough, + sputum, No shortness of breath Cardiac: No chest pain, No edema, No palpitations Abdomen: No pain, No nausea, No vomiting, No diarrhea Male : No dysuria, No urinary frequency Neurologic: + weakness, + vertigo, + balance problems, No memory loss, No paralysis, No numbness/tingling Medications Current Inpatient Medications Medications (Trade) Dose Ordered Sig/Leonarda Route Start Time Stop Time Status Last Admin Dose Admin Heparin Sodium (Porcine) (Heparin Sq 5000 Unit/0.5ml) 5,000 unit Q8 SQ 03/10/17 22:00 04/09/17 21:59 03/11/17 06:23 5,000 UNIT Acetaminophen (Tylenol Tab) 650 mg Q4H PRN PO 03/10/17 16:15 04/09/17 16:14 Ondansetron HCl (Zofran Inj) 4 mg Q6H PRN IV 03/10/17 16:15 04/09/17 16:14 Nitroglycerin (Nitrostat Tab) 0.4 mg UD PRN SL 03/10/17 16:15 04/09/17 16:14 Carvedilol (Coreg Tab) 3.125 mg BID PO 03/10/17 18:00 04/09/17 17:59 03/11/17 07:27 3.125 MG Allopurinol (Zyloprim Tab) 300 mg QAM PO 03/11/17 09:00 04/10/17 08:59 03/11/17 07:26 300 MG Aspirin (Ecotrin Tab) 81 mg QAM PO 03/11/17 09:00 04/10/17 08:59 03/11/17 07:26 81 MG Calcitriol (Rocaltrol Cap) 0.25 mcg MoTh@0900 PO 03/12/17 09:00 04/11/17 08:59 Cholecalciferol (Vitamin D Tab) 2,000 inter.unit QAM PO 03/11/17 09:00 04/10/17 08:59 03/11/17 07:27 2,000 INTER.UNIT Docusate Sodium (coLACE CAP) 100 mg BID PO 03/10/17 21:00 04/09/17 20:59 03/11/17 07:27 100 MG Acetaminophen/ Hydrocodone Bitart ([place] 5/325 Tab) 1 tab Q6H PRN PO 03/10/17 17:00 03/24/17 16:59 03/11/17 06:21 1 TAB Isosorbide Mononitrate (Imdur Ext Rel Tab) 30 mg QAM PO 03/11/17 09:00 04/10/17 08:59 03/11/17 07:26 30 MG Levothyroxine Sodium (Synthroid Tab) 100 mcg DAILYBB PO 03/11/17 06:00 04/10/17 06:59 03/11/17 06:21 100 MCG Multivitamins (Multivitamin Tab) 1 tab QAM PO 03/11/17 09:00 04/10/17 08:59 03/11/17 07:27 1 TAB Simvastatin (Zocor Tab) 20 mg QPM PO 03/10/17 21:00 04/09/17 20:59 03/10/17 20:52 20 MG Miscellaneous Information (Order Awaiting Action) 1 ea QS N/A 03/11/17 00:00 04/10/17 00:00 Fish Oil ([place]-3 (Purified Fish Oil) Cap) 1 gm DAILY PO 03/11/17 09:00 04/10/17 08:59 03/11/17 07:27 1 GM Pantoprazole Sodium (Protonix Tab) 40 mg QAM PO 03/11/17 09:00 04/10/17 08:59 03/11/17 07:27 40 MG Ceftriaxone Sodium 1 gm/ Dextrose 50 ml @ 100 mls/hr Q24H IV 03/10/17 18:00 03/20/17 17:59 03/10/17 20:06 100 MLS/HR Doxycycline Hyclate 100 mg/ Dextrose 110 ml @ 50 mls/hr BID@0700,1900 IV 03/10/17 19:00 03/17/17 18:59 03/11/17 07:32 50 MLS/HR Insulin Aspart (novoLOG ASPART) SLIDING SCALE If C... ACHS SC 03/10/17 21:00 04/09/17 20:59 03/10/17 20:52 4 UNITS Glucose (Glucose 40% Gel) 15-30 GRAMS 15 GRAMS... UD PRN PO 03/10/17 17:15 04/09/17 17:14 Glucose (Glucose Chew Tab) 4-8 Tablets 4 Tabl... UD PRN PO 03/10/17 17:15 04/09/17 17:14 Dextrose (Dextrose 50% 50ML Syringe) 25-50ML OF 50% DW IV FOR... UD PRN IV 03/10/17 17:15 04/09/17 17:14 Glucagon (Glucagon Inj) 1 mg UD PRN SQ 03/10/17 17:15 04/09/17 17:14 Polyethylene (Miralax Powder Packet) 17 gm DAILY PO 03/10/17 19:15 04/09/17 19:14 03/11/17 07:28 17 GM Objective Vital Signs Date Time Temp Pulse Resp B/P (MAP) Pulse Ox O2 Delivery O2 Flow Rate FiO2 03/11/17 08:06 36.8 97 20 130/65 (86) 95 Nasal Cannula 2.0 03/11/17 04:14 37.0 97 22 157/74 (101) 98 Nasal Cannula 2.0 03/11/17 04:00 Nasal Cannula 2.0 03/11/17 00:01 Nasal Cannula 2.0 03/10/17 23:27 36.8 80 21 151/99 (116) 96 Nasal Cannula 2.5 03/10/17 21:54 36.7 102 18 183/97 Nasal Cannula 2.0 03/10/17 20:46 36.7 102 18 183/97 (125) 96 Nasal Cannula 2.0 03/10/17 20:00 Nasal Cannula 2.0 03/10/17 18:44 36.8 98 18 174/99 (124) 91 Nasal Cannula 2.0 03/10/17 16:58 102 24 133/77 96 Room Air 03/10/17 16:45 96 03/10/17 15:26 97 24 152/63 94 Room Air 03/10/17 13:45 100 18 146/75 94 Room Air 03/10/17 13:03 100 03/10/17 12:23 94 Room Air 03/10/17 11:42 36.8 96 18 110/77 94 Room Air Physical Exam General Appearance: no apparent distress, + pertinent finding (+lethargy, chronically ill appearing/weak) Respiratory/Chest: chest non-tender, lungs clear, normal breath sounds, no respiratory distress, no accessory muscle use Cardiovascular: no edema, no murmur, + irregularly irregular Abdomen: normal bowel sounds, non tender, soft Extremities: normal inspection, no pedal edema, no calf tenderness, + pertinent finding (tender at the R hip, decreased/painful ROM of the R hip) Neurologic/Psychiatric: alert, normal mood/affect Laboratory Results Last 24 Hours Test 03/10/17 12:21 03/10/17 12:36 03/10/17 18:00 03/10/17 18:54 Urine Color DK YELLOW Urine Appearance CLOUDY Urine pH 5.0 Urine Specific [place] 1.026 Urine Protein 2+ Urine Glucose (UA) NEG Urine Ketones NEG Urine Occult Blood TRACE Urine Nitrite NEG Urine Bilirubin 1+ Urine Urobilinogen NEG Urine Leukocyte Esterase SMALL Urine WBC (Auto) 10-30 /hpf Urine RBC (Auto) 0-4 /hpf Urine Hyaline Casts (Auto) 10-30 /lpf Urine Epithelial Cells (Auto) >30 /lpf Urine Bacteria (Auto) NEG Urine Renal Epithelial Cells 0-5 /lpf Urine Pathogenic Casts 0-3 GRANULAR CASTS /lpf Urine Yeast (Auto) BUD W/ HYPHAE White Blood Count 16.54 K/uL Red Blood Count 3.88 M/uL Hemoglobin 12.5 g/dL Hematocrit 38.2 % Mean Corpuscular Volume 98.5 fL Mean Corpuscular Hemoglobin 32.2 pg Mean Corpuscular Hemoglobin Concent 32.7 g/dl Platelet Count 140 K/uL Mean Platelet Volume 12.7 fL Neutrophils (%) (Auto) 91.0 % Lymphocytes (%) (Auto) 3.5 % Monocytes (%) (Auto) 4.7 % Eosinophils (%) (Auto) 0.1 % Basophils (%) (Auto) 0.2 % Neutrophils # (Auto) 15.03 K/uL Lymphocytes # (Auto) 0.58 K/uL Monocytes # (Auto) 0.78 K/uL Eosinophils # (Auto) 0.02 K/uL Basophils # (Auto) 0.04 K/uL RDW Standard Deviation 52.0 fL RDW Coefficient of Variation 14.7 % Immature Granulocyte % (Auto) 0.5 % Immature Granulocyte # (Auto) 0.09 K/uL Prothrombin Time 11.5 SECONDS Prothromb Time International Ratio 1.1 Activated Partial Thromboplast Time 29.2 SECONDS Partial Thromboplastin Ratio 1.1 Sodium Level 131 mmol/L Potassium Level 4.3 mmol/L Chloride Level 96 mmol/L Carbon Dioxide Level 28 mmol/L Anion Gap 7.0 mmol/L Blood Urea Nitrogen 32 mg/dl Creatinine 2.20 mg/dl Est Creatinine Clear Calc Drug Dose 27.2 ml/min Estimated GFR () 30.5 Estimated GFR (Non- 26.3 BUN/Creatinine Ratio 14.7 Random Glucose 261 mg/dl Calcium Level 9.4 mg/dl Magnesium Level 1.9 mg/dl Total Bilirubin 0.8 mg/dl Aspartate Amino Transf (AST/SGOT) 30 U/L Alanine Aminotransferase (ALT/SGPT) 43 U/L Alkaline Phosphatase 222 U/L Total Creatine Kinase 82 U/L Creatine Kinase MB 1.2 ng/ml 1.1 ng/ml Creatine Kinase MB Ratio 1.5 Troponin I 0.168 ng/ml 0.154 ng/ml Pro-B-Type Natriuretic Peptide 93985 pg/ml Total Protein 7.0 gm/dl Albumin 3.0 gm/dl Globulin 4.0 gm/dl Albumin/Globulin Ratio 0.8 Thyroid Stimulating Hormone (TSH) 0.918 uIu/ml Test 03/10/17 20:47 03/11/17 00:00 03/11/17 00:08 03/11/17 06:03 Bedside Glucose 273 mg/dl Creatine Kinase MB Ratio Creatine Kinase MB 1.2 ng/ml Troponin I 0.151 ng/ml White Blood Count 16.59 K/uL Red Blood Count 3.70 M/uL Hemoglobin 12.2 g/dL Hematocrit 36.5 % Mean Corpuscular Volume 98.6 fL Mean Corpuscular Hemoglobin 33.0 pg Mean Corpuscular Hemoglobin Concent 33.4 g/dl RDW Standard Deviation 52.8 fL RDW Coefficient of Variation 14.6 % Platelet Count 126 K/uL Mean Platelet Volume 11.6 fL Sodium Level 131 mmol/L Potassium Level 4.4 mmol/L Chloride Level 96 mmol/L Carbon Dioxide Level 27 mmol/L Anion Gap 8.0 mmol/L Blood Urea Nitrogen 37 mg/dl Creatinine 2.10 mg/dl Est Creatinine Clear Calc Drug Dose 28.5 ml/min Estimated GFR () 32.3 Estimated GFR (Non- 27.9 BUN/Creatinine Ratio 17.6 Random Glucose 260 mg/dl Calcium Level 9.0 mg/dl Magnesium Level 1.9 mg/dl Test 03/11/17 06:30 Bedside Glucose 255 mg/dl Assessment and Plan This is an 86 year old male with a PMH of paroxysmal atrial fibrillation/flutter , CAD s/p CABG, aortic stenosis, chronic diastolic CHF, HTN, DM2, CKD stage 3, NII and uses 2L nocturnal O2, hypothyroidism presents secondary to a mechanical fall, functional decline Mechanical Fall Functional Decline Deconditioning patient is 86 years old, lives alone, has had issues with gait, uses a walker at baseline for ambulation and fell out a lift chair States he has some pain at the R hip patient is on chronic Dawson at home, which we can continue for now PT/OT discharge planning eval - will likely need placement A. Flutter with RVR - Improving HRs elevated, likely secondary to pain and the fall Coreg was increased slightly to 3.25mg BID HRs are now improved to the 80s-100s will need to monitor in tele to monitor for any bradyarrhythmias not a candidate for anticoagulation due to age and fall risk Leukocytosis UTI vs. URI? UA does not seem infected - though patient had been on Bactrim recently urine culture/blood cultures pending currently on Doxy and Rocephin empirically, which we can continue Chronic Diastolic CHF Aortic Stenosis mild fluid overload yesterday currently seems euvolemic given one dose of IV Lasix no additional Lasix needed for now appreciate cardiology input NII nocturnal O2 - 2L CAD s/p CABG no acute issues continue aspirin, Coreg, statin cardiac enzymes mildly elevated, though no additional increase: likely secondary to tachycardia and infection HTN BP improving with increase in Coreg for now continue b-bhavya and monitor DM2 insulin sliding scale was started BSGs not controlled >200 consistently will tighten sliding scale add Lantus 5 units BID CKD stage 3 creatinine is around 2.2, which seems to be baseline avoid nephrotoxic agents if able Hypothyroidism continue Synthroid DVT ppx subq heparin DNR
[2017-03-11 11:05] VITALS: BP 146/71
[2017-03-11 11:37] VITALS: BP 125/81; PULSE 99; TEMP 36.8; O2SAT 97
[2017-03-11] MEDS ORDERED: INSULIN HUMAN REGULAR SC ONE (12:00)
[2017-03-11] MEDS ORDERED: PHARMACY GLYCEMIC MGMT CONSULT PRN (12:01)
[2017-03-11] MEDS ORDERED: INSULIN GLARGINE SOLOSTAR 100 UNITS/ML 3 ML PEN SC ONE (12:15)
[2017-03-11] MEDS ORDERED: INSULIN GLARGINE SOLOSTAR 100 UNITS/ML 3 ML PEN SC SCH ×2 (12:15→21:00)
--- NOTE | 2017-03-11 12:43 | Pharmacy Progress Note ---
Glycemic Control Intl Consult Date of Service Mar 11, 2017. Scope Glycemic Pharmacist consulted by Dr Hernandez on 03/11/17 for glycemic control and to write orders per [facility] inpatient glycemic control protocol Objective Weight (Kilograms): 103.900 Accuchecks BSG (last 24hrs): Test 03/10/17 12:36 03/10/17 20:47 03/11/17 06:03 03/11/17 06:30 Random Glucose 261 mg/dl (70-99) 260 mg/dl (70-99) Bedside Glucose 273 mg/dl (70-99) 255 mg/dl (70-99) Test 03/11/17 11:11 Bedside Glucose 350 mg/dl (70-99) Laboratory Data (last 24hrs) Test 03/10/17 12:36 03/11/17 06:03 Anion Gap 7.0 mmol/L 8.0 mmol/L BUN/Creatinine Ratio 14.7 17.6 Blood Urea Nitrogen 32 mg/dl 37 mg/dl Creatinine 2.20 mg/dl 2.10 mg/dl Potassium Level 4.3 mmol/L 4.4 mmol/L Sodium Level 131 mmol/L 131 mmol/L White Blood Count 16.54 K/uL 16.59 K/uL Red Blood Count 3.88 M/uL Hemoglobin 12.5 g/dL Hematocrit 38.2 % Mean Corpuscular Volume 98.5 fL Mean Corpuscular Hemoglobin 32.2 pg Mean Corpuscular Hemoglobin Concent 32.7 g/dl Platelet Count 140 K/uL Mean Platelet Volume 12.7 fL Neutrophils (%) (Auto) 91.0 % Lymphocytes (%) (Auto) 3.5 % Monocytes (%) (Auto) 4.7 % Eosinophils (%) (Auto) 0.1 % Basophils (%) (Auto) 0.2 % Neutrophils # (Auto) 15.03 K/uL Lymphocytes # (Auto) 0.58 K/uL Monocytes # (Auto) 0.78 K/uL Eosinophils # (Auto) 0.02 K/uL Basophils # (Auto) 0.04 K/uL HbA1c {OUTDATED} Recent Pertinent Medications Outpatient Anti-diabetic Regimen: * NovoLog 70/30 premixed insulin, 10 units SQ BIDM The patient is currently receiving: * Basal insulin: NONE * Correctional Insulin: Novolog Correction per scale ACHS Goal Range: Low 140 mg/dL - High 180 mg/dL Correction Factor: 20 mg/dL/unit * Prandial insulin: Per carb ratio of 1 unit per 8 grams CHO consumed Risk Factors for Insulin Resistance: * Infection * Diet Assessment & Plan ASSESSMENT: * Outpatient regimen is premixed basal/prandial insulin of Novolog 70/30 mix insulin. * Pre-mixed insulin is difficult to titrate since it is already in a fixed distribution of basal:prandial insulin. Continuing pre-mixed insulin for admission typically lead to hypoglycemia d/t changing PO status but rapid acting insulin is unable to be held. * Home regimen was held on admission by admitting PA. Bolus insulin per CF/CR was ordered but no basal insulin was ordered. * BSGs over the past 24hrs are: 273, 255, 350 --> hyperglycemia secondary to basal insulin deficiency. PLAN FOR INPATIENT GLYCEMIC CONTROL: * Basal insulin * Start Lantus 20 units (0.2units/kg) SQ x 1 dose now. This is the full 24hr dose since basal insulin dose missed last evening * Then, Lantus 10 units SQ BID. Will continue to titrate based on BSG trends. * Bolus insulin * NovoLog per scale ACHS or Q6hrs while NPO * Tighten parameters slightly for critical high BSG. Will lessen parameters once Lantus is initiated. * Goal Range: Low 140 mg/dL - High 180 mg/dL * Correction Factor: 15 mg/dL/unit --> will change back to 25 as BSGs trend downwards * Nutritional / Prandial insulin per carb ratio of 1 unit per 5 grams CHO consumed --> will change back to 8 as BSGs trend downwards * Please note that the plan above was derived based on current level of insulin resistance and hospital stress. These recommendations are appropriate for inpatient admission only. Plan of care upon discharge will need to be reassessed to avoid potential outpatient hypo/hyperglycemia. Thank you.
--- NOTE | 2017-03-11 15:26 | ECHOCARDIOGRAM REPORT ---
*NOTICE TO RECEIVING DEMOCRAT AGENCY This information is strictly Confidential and protected under [place] law. [place] law prohibits you from making any further disclosure of this information unless further disclosure is expressly permitted by the written consent of the person to whom it pertains or is authorized by law. A general authorization for the release of medical or other information is not sufficient for this purpose. Hospital accepts no responsibility if the information is made available to any other person, INCLUDING THE PATIENT. Interpretation Summary * Name: ABNER CALZADA Study Date: 03/11/2017 07:10 AM BP: 157/74 mmHg * Patient Location: C.2E\[id number]\E208\S\1 HR: 103 * : 1930 (M/d/yyy) Gender: Male Height: 65 in * Age: 86 yrs Ethnicity: [place] Weight: 229 lb * Ordering Physician: Nory Mills * Referring Physician: Self, Referred * Performed By: Temi Saunders RCS * * Reason For Study: CHF * BSA: 2.1 m2 * -- Conclusions -- * The left ventricle is normal in size. * There is mild concentric left ventricular hypertrophy. * The inferior and posterior hayden are severely hypokinetic all other segments are mildly hypokinetic * Ejection Fraction = 40-45%. * The aortic valve leaflets are calcified. * Moderate to severe valvular aortic stenosis. * There is moderate mitral annular calcification. Procedure Details * A contrast injection of Definity was performed to improve assessment of LV function. * Contrast was injected into an intravenous site in the left arm. * One vial of Definity ultrasound contrast was diluted in normal saline to a total volume of 10 ml. A total of '4' ml of solution was administered during imaging. * Lot # [id number] of Definity utilized for procedure. * Expiration date . * The attending nurse who injected the contrast agent was NATY ZARATE. * A complete two-dimensional transthoracic echocardiogram was performed (2D, M-mode, Doppler and color flow Doppler). Left Ventricle * The left ventricle is normal in size. * There is mild concentric left ventricular hypertrophy. * Ejection Fraction = 40-45%. * The inferior and posterior hayden are severely hypokinetic all other segments are mildly hypokinetic Right Ventricle * The right ventricle is normal in size and function. Atria * The left atrial size is normal. * Right atrial size is normal. * No ASD detected; PFO is not assessed. Mitral Valve * There is moderate mitral annular calcification. * There is no mitral valve stenosis. * There is trace mitral regurgitation. Tricuspid Valve * The tricuspid valve is not well visualized, but is grossly normal. * There is no tricuspid stenosis. * There is mild to moderate tricuspid regurgitation. Aortic Valve * The aortic valve is trileaflet. * The aortic valve leaflets are calcified. * Moderate to severe valvular aortic stenosis. * No aortic regurgitation is present. Pulmonic Valve * The pulmonic valve is not well visualized. Great Vessels * The aortic root is normal size. Pericardium/Pleural * There is no pericardial effusion. Great Vessels * The inferior vena cava is mildly dilated. MMode 2D Measurements and Calculations IVSd 1.3 cm LVIDd 4.4 cm LVIDs 3.8 cm LVPWd 1.3 cm IVS/LVPW 0.96 FS 14.5 % EDV(Teich) 87.2 ml ESV(Teich) 60.0 ml EF(Teich) 31.1 % EDV(cubed) 84.5 ml ESV(cubed) 52.7 ml EF(cubed) 37.6 % LV mass(C)d 219.1 grams LV mass(C)dI 104.6 grams/m\S\2 SV(Teich) 27.1 ml SI(Teich) 12.9 ml/m\S\2 SV(cubed) 31.8 ml SI(cubed) 15.2 ml/m\S\2 Ao root diam 2.8 cm Ao root area 6.2 cm\S\2 LVOT diam 2.1 cm LVOT area 3.5 cm\S\2 EDV(MOD-sp4) 104.6 ml ESV(MOD-sp4) 74.3 ml EF(MOD-sp4) 29.0 % EDV(MOD-sp2) 131.4 ml ESV(MOD-sp2) 94.5 ml EF(MOD-sp2) 28.1 % SV(MOD-sp4) 30.3 ml SI(MOD-sp4) 14.5 ml/m\S\2 SV(MOD-sp2) 36.9 ml SI(MOD-sp2) 17.6 ml/m\S\2 Doppler Measurements and Calculations Ao V2 max 279.3 cm/sec Ao max PG 31.5 mmHg Ao max PG (full) 29.3 mmHg Ao V2 mean 201.8 cm/sec Ao mean PG 18.6 mmHg Ao mean PG (full) 17.4 mmHg Ao V2 VTI 51.6 cm JENARO(I,A) 0.99 cm\S\2 JENARO(I,D) 0.99 cm\S\2 JENARO(V,A) 0.94 cm\S\2 JENARO(V,D) 0.94 cm\S\2 LV V1 max PG 2.2 mmHg LV V1 mean PG 1.2 mmHg LV V1 max 74.4 cm/sec LV V1 mean 50.1 cm/sec LV V1 VTI 14.5 cm SV(Ao) 320.9 ml SI(Ao) 153.2 ml/m\S\2 SV(LVOT) 51.3 ml SI(LVOT) 24.5 ml/m\S\2
[2017-03-11 16:43] VITALS: BP 114/63; PULSE 90; TEMP 36.4; O2SAT 97
[2017-03-11] MEDS: CEFTRIAXONE SOD INJ 1 GM in DEXTROSE 5% ADD-VANTAGE 50ML 50 ML IV SCH (18:13)
[2017-03-11 19:32] VITALS: BP 117/68; PULSE 100; TEMP 36.2; O2SAT 96
[2017-03-11] MEDS: SIMVASTATIN 20 MG TAB PO SCH (20:44)
[2017-03-12] VITALS (8 sets, daily range): BP systolic 104–138; BP diastolic 44–77; PULSE 83–99; TEMP 36.5–37.2; O2SAT 96–98; Ht 165.1 cm; Wt 103.4 kg
[2017-03-12 05:29] LABS: HEMATOCRIT 34.8 % (42-52); MEAN CELL VOLUME 97.8 fL (80-100); MEAN CORPUSCULAR HEMOGLOBIN 32.9 pg (25-34); MEAN CORPUSCULAR HGB CONC 33.6 g/dl (32-36); MEAN PLATELET VOLUME 11.8 fL (7.4-10.4); PLATELET COUNT 132 K/uL (130-400); RED BLOOD COUNT 3.56 M/uL (4.7-6.1); WHITE BLOOD COUNT 10.69 K/uL (4.8-10.8)
[2017-03-12 05:57] LABS: BUN/CREATININE RATIO 19.8 (10-20); CALCIUM 8.6 mg/dl (8.5-10.1); CREATININE 2.3 mg/dl (0.60-1.40); POTASSIUM 4.3 mmol/L (3.5-5.1)
[2017-03-12] MEDS: HYDROCODONE/ACETAMOPHEN 5/325MG TAB PO PRN (06:08)
[2017-03-12] MEDS: LEVOTHYROXINE 100 MCG TAB PO SCH (06:08)
[2017-03-12] MEDS: DOXYCYCLINE IV 100 MG in DEXTROSE 5% 100ML 100 ML IV SCH ×2 (06:09→19:09)
[2017-03-12] MEDS: HEPARIN SOD 5000 UNIT/0.5 ML CARP SQ SCH ×3 (06:11→21:10)
[2017-03-12 07:28] LABS: ESTIMATED AVERAGE GLUCOSE 194 mg/dl; HA1C FLAG Normal (Normal)
--- NOTE | 2017-03-12 08:21 | Clinical Documentation Query ---
BRITTANY Wood : CLINICAL DOCUMENTATION QUERIES QUERY 1 OF 2 EMR review demonstrates an estimated GFR range < 30 ml/min dating back to at least 07/01/15. Documentation includes: "CKD stage 3 creatinine is around 2.2, which seems to be baseline avoid nephrotoxic agents if able" Please clarify as clinically appropriate. In your clinical opinion is this patient being managed for: ( x ) Chronic kidney disease, stage 4 ( ) Not Agree ( ) Other explanation of clinical findings (Please Explain) ( ) Unable to determine (Please Define) ( ) Need to Discuss The medical record reflects the following clinical findings, treatment, and risk factors. Clinical Indicators: As above Treatment:avoid nephrotoxic agents if able Risk Factors: Age, chronic diastolic CHF, atrial flutter, CAD, DM, hypertension QUERY 2 OF 2 Documentation included: Chronic Diastolic CHF Aortic Stenosis mild fluid overload yesterday currently seems euvolemic given one dose of IV Lasix no additional Lasix needed for now appreciate cardiology input" In your clinical opinion is this patient being managed for: ( ) Acute on chronic diastolic CHF, resolved ( X ) Not Agree ( ) Other explanation of clinical findings (Please Explain) ( ) Unable to determine (Please Define) ( ) Need to Discuss The medical record reflects the following clinical findings, treatment, and risk factors. Clinical Indicators: As above Treatment: IV Lasix Risk Factors: Chronic diastolic CHF, age, illness, ?infection Please clarify and document your clinical opinion in the progress notes and discharge summary. Terms such as "probable", "suspected", "likely", "questionable", "possible", or "still to be ruled out" are acceptable. IF IN AGREEMENT, YOU MUST DOCUMENT ABOVE DIAGNOSTIC STATEMENT IN DAILY PROGRESS NOTES AND DISCHARGE SUMMARY. This document is not part of the patient's record. Thank You, Avery Perez, RN [phone]
[2017-03-12] MEDS: CHOLECALCIFEROL 1000 INTER.UNIT TAB PO SCH (08:53)
[2017-03-12] MEDS: ALLOPURINOL 300 MG TAB PO SCH (08:53)
[2017-03-12] MEDS: DOCUSATE SODIUM 100 MG CAP PO SCH ×2 (08:54→21:01)
[2017-03-12] MEDS: MULTIVITAMIN TAB PO SCH (08:54)
[2017-03-12] MEDS: ISOSORBIDE MONONITRATE 30 MG TABCR PO SCH (08:54)
[2017-03-12] MEDS: OMEGA-3 (PURIFIED FISH OIL) 1 GM CAP PO SCH (08:54)
[2017-03-12] MEDS: PANTOprazole SOD 40 MG TAB PO SCH (08:54)
[2017-03-12] MEDS: ASPIRIN 81 MG ECTAB PO SCH (08:54)
[2017-03-12] MEDS: CARVEDILOL 3.125 MG TAB PO SCH ×2 (08:54→21:01)
[2017-03-12] MEDS: POLYETHYLENE (MIRALAX) 17 GM PACK PO SCH (08:55)
[2017-03-12] MEDS: INSULIN ASPART 100 UNITS/ML 3 ML PEN SC SCH ×4 (08:57→20:59)
[2017-03-12] MEDS ORDERED: CALCITRIOL 0.25 MCG CAP PO SCH (09:00)
[2017-03-12] MEDS ORDERED: INSULIN GLARGINE SOLOSTAR 100 UNITS/ML 3 ML PEN SC SCH (09:00)
--- NOTE | 2017-03-12 11:00 | Progress Note ---
Subjective Date of Service: Mar 12, 2017. Subjective Pt evaluation today including: conversation w/ patient, physical exam, lab review, review of studies, review of inpatient medication list Saw/examined the patient in room 208 Feels better today after receiving pain medications +weakness persists Problem List Medical Problems: (1) Acute exacerbation of CHF (congestive heart failure) Status: Acute (2) Acute renal failure (ARF) Status: Acute (3) Anemia Status: Acute (4) Chest pain Status: Acute (5) Elevated brain natriuretic peptide (BNP) level Status: Acute (6) Hip pain Status: Acute (7) Shortness of breath Status: Acute (8) Troponin I above reference range Status: Acute Review of Systems Constitutional: + weakness, No fever, No chills Respiratory: No shortness of breath Cardiac: No chest pain Abdomen: No pain, No nausea, No vomiting, No diarrhea Musculoskeletal: + joint pain (chronically, R hip) Medications Current Inpatient Medications Medications (Trade) Dose Ordered Sig/Leonarda Route Start Time Stop Time Status Last Admin Dose Admin Heparin Sodium (Porcine) (Heparin Sq 5000 Unit/0.5ml) 5,000 unit Q8 SQ 03/10/17 22:00 04/09/17 21:59 03/12/17 06:11 5,000 UNIT Acetaminophen (Tylenol Tab) 650 mg Q4H PRN PO 03/10/17 16:15 04/09/17 16:14 Ondansetron HCl (Zofran Inj) 4 mg Q6H PRN IV 03/10/17 16:15 04/09/17 16:14 Nitroglycerin (Nitrostat Tab) 0.4 mg UD PRN SL 03/10/17 16:15 04/09/17 16:14 Allopurinol (Zyloprim Tab) 300 mg QAM PO 03/11/17 09:00 04/10/17 08:59 03/12/17 08:53 300 MG Aspirin (Ecotrin Tab) 81 mg QAM PO 03/11/17 09:00 04/10/17 08:59 03/12/17 08:54 81 MG Calcitriol (Rocaltrol Cap) 0.25 mcg MoTh@0900 PO 03/12/17 09:00 04/11/17 08:59 03/12/17 08:54 0.25 MCG Cholecalciferol (Vitamin D Tab) 2,000 inter.unit QAM PO 03/11/17 09:00 04/10/17 08:59 03/12/17 08:53 2,000 INTER.UNIT Docusate Sodium (coLACE CAP) 100 mg BID PO 03/10/17 21:00 04/09/17 20:59 03/12/17 08:54 100 MG Acetaminophen/ Hydrocodone Bitart ([place] 5/325 Tab) 1 tab Q6H PRN PO 03/10/17 17:00 03/24/17 16:59 03/12/17 06:08 1 TAB Isosorbide Mononitrate (Imdur Ext Rel Tab) 30 mg QAM PO 03/11/17 09:00 04/10/17 08:59 03/12/17 08:54 30 MG Levothyroxine Sodium (Synthroid Tab) 100 mcg DAILYBB PO 03/11/17 06:00 04/10/17 06:59 03/12/17 06:08 100 MCG Multivitamins (Multivitamin Tab) 1 tab QAM PO 03/11/17 09:00 04/10/17 08:59 03/12/17 08:54 1 TAB Simvastatin (Zocor Tab) 20 mg QPM PO 03/10/17 21:00 04/09/17 20:59 03/11/17 20:44 20 MG Miscellaneous Information (Order Awaiting Action) 1 ea QS N/A 03/11/17 00:00 04/10/17 00:00 Fish Oil ([place]-3 (Purified Fish Oil) Cap) 1 gm DAILY PO 03/11/17 09:00 04/10/17 08:59 03/12/17 08:54 1 GM Pantoprazole Sodium (Protonix Tab) 40 mg QAM PO 03/11/17 09:00 04/10/17 08:59 03/12/17 08:54 40 MG Ceftriaxone Sodium 1 gm/ Dextrose 50 ml @ 100 mls/hr Q24H IV 03/10/17 18:00 03/20/17 17:59 03/11/17 18:13 100 MLS/HR Doxycycline Hyclate 100 mg/ Dextrose 110 ml @ 50 mls/hr BID@0700,1900 IV 03/10/17 19:00 03/17/17 18:59 03/12/17 06:09 50 MLS/HR Insulin Aspart (novoLOG ASPART) SLIDING SCALE If C... ACHS SC 03/10/17 21:00 04/09/17 20:59 03/12/17 08:57 9 UNITS Glucose (Glucose 40% Gel) 15-30 GRAMS 15 GRAMS... UD PRN PO 03/10/17 17:15 04/09/17 17:14 Glucose (Glucose Chew Tab) 4-8 Tablets 4 Tabl... UD PRN PO 03/10/17 17:15 04/09/17 17:14 Dextrose (Dextrose 50% 50ML Syringe) 25-50ML OF 50% DW IV FOR... UD PRN IV 03/10/17 17:15 04/09/17 17:14 Glucagon (Glucagon Inj) 1 mg UD PRN SQ 03/10/17 17:15 04/09/17 17:14 Polyethylene (Miralax Powder Packet) 17 gm DAILY PO 03/10/17 19:15 04/09/17 19:14 03/12/17 08:55 17 GM Miscellaneous Information (Consult Glycemic Management Pharmacy) 1 ea UD PRN N/A 03/11/17 12:01 04/10/17 12:00 Insulin Glargine (Lantus Solostar Pen) 10 units BID SC 03/12/17 09:00 04/11/17 08:59 03/12/17 08:56 10 UNITS Carvedilol (Coreg Tab) 6.25 mg BID PO 03/12/17 21:00 04/09/17 17:59 UNV Objective Vital Signs Date Time Temp Pulse Resp B/P (MAP) Pulse Ox O2 Delivery O2 Flow Rate FiO2 03/12/17 08:00 Nasal Cannula 2.0 03/12/17 07:09 36.6 99 20 119/64 (82) 97 Nasal Cannula 03/12/17 04:13 36.5 93 20 136/69 (91) 98 Nasal Cannula 2.0 03/12/17 04:00 Nasal Cannula 2.0 03/12/17 00:09 36.7 93 21 137/64 (88) 97 Nasal Cannula 2.0 03/12/17 00:00 Nasal Cannula 2.0 03/11/17 20:00 Nasal Cannula 2.0 03/11/17 19:32 36.2 100 20 117/68 (84) 96 Nasal Cannula 2.0 03/11/17 16:43 36.4 90 16 114/63 (80) 97 Nasal Cannula 2.0 03/11/17 16:00 Nasal Cannula 2.0 03/11/17 12:00 Nasal Cannula 2.0 03/11/17 11:37 36.8 99 20 125/81 (96) 97 Nasal Cannula 2.0 Physical Exam General Appearance: no apparent distress Respiratory/Chest: lungs clear, normal breath sounds, no respiratory distress, no accessory muscle use Cardiovascular: no murmur, + tachycardia Extremities: + swelling (trace edema, TEDs in place) Neurologic/Psychiatric: no motor/sensory deficits, alert, normal mood/affect Laboratory Results Last 24 Hours Test 03/11/17 11:11 03/11/17 16:08 03/11/17 20:22 03/12/17 05:15 Bedside Glucose 350 mg/dl 181 mg/dl 263 mg/dl White Blood Count 10.69 K/uL Red Blood Count 3.56 M/uL Hemoglobin 11.7 g/dL Hematocrit 34.8 % Mean Corpuscular Volume 97.8 fL Mean Corpuscular Hemoglobin 32.9 pg Mean Corpuscular Hemoglobin Concent 33.6 g/dl RDW Standard Deviation 52.2 fL RDW Coefficient of Variation 14.5 % Platelet Count 132 K/uL Mean Platelet Volume 11.8 fL Sodium Level 131 mmol/L Potassium Level 4.3 mmol/L Chloride Level 95 mmol/L Carbon Dioxide Level 32 mmol/L Anion Gap 4.0 mmol/L Blood Urea Nitrogen 46 mg/dl Creatinine 2.30 mg/dl Est Creatinine Clear Calc Drug Dose 26.1 ml/min Estimated GFR () 28.9 Estimated GFR (Non- 25.0 BUN/Creatinine Ratio 19.8 Random Glucose 174 mg/dl Estimated Average Glucose 194 mg/dl Hemoglobin A1c 8.4 % Calcium Level 8.6 mg/dl Magnesium Level 2.0 mg/dl Test 03/12/17 06:40 Bedside Glucose 182 mg/dl Assessment and Plan This is an 86 year old male with a PMH of paroxysmal atrial fibrillation/flutter , CAD s/p CABG, aortic stenosis, chronic diastolic CHF, HTN, DM2, CKD stage 3, NII and uses 2L nocturnal O2, hypothyroidism presents secondary to a mechanical fall, functional decline Mechanical Fall Functional Decline Deconditioning 8/31 continue PT/OT added [place] 5/325 BID scheduled and then PRN order as well; he takes this up to five times daily at home will need rehab 03/11 patient is 86 years old, lives alone, has had issues with gait, uses a walker at baseline for ambulation and fell out a lift chair States he has some pain at the R hip patient is on chronic [place] at home, which we can continue for now PT/OT discharge planning eval - will likely need placement A. Flutter with RVR - Improving 03/12 HRs are still elevated, possibly pain induced Coreg dose increased slightly as per cardio; appreciate input hold Lasix 03/11 HRs elevated, likely secondary to pain and the fall Coreg was increased slightly to 3.25mg BID HRs are now improved to the 80s-100s will need to monitor in tele to monitor for any bradyarrhythmias not a candidate for anticoagulation due to age and fall risk Leukocytosis UTI vs. URI? UA does not seem infected - though patient had been on Bactrim recently urine culture/blood cultures pending currently on Doxy and Rocephin empirically, which we can continue Chronic Diastolic CHF Aortic Stenosis 03/12 not likely an acute CHF he has aortic stenosis, though not critical 03/11 mild fluid overload on 03/12 currently seems euvolemic given one dose of IV Lasix no additional Lasix needed for now appreciate cardiology input NII nocturnal O2 - 2L CAD s/p CABG no acute issues continue aspirin, Coreg, statin cardiac enzymes mildly elevated, though no additional increase: likely secondary to tachycardia and infection HTN BP improving with increase in Coreg for now continue b-bhavya and monitor DM2 insulin sliding scale was started BSGs not controlled >200 consistently will tighten sliding scale add Lantus 5 units BID CKD stage 4 creatinine is around 2.2, which seems to be baseline avoid nephrotoxic agents if able Hypothyroidism continue Synthroid DVT ppx subq heparin DNR
--- NOTE | 2017-03-12 11:47 | PROGRESS NOTE ---
DATE: 03/12/2017 The patient seen and examined. Chart, medications, telemetry reviewed. SUBJECTIVE: The patient feels somewhat improved today. Denies any complaints, chest pains, dizziness, lightheadedness, syncope or near syncope. Notes no fevers or chills. Lower extremity edema has improved slightly. Continues to have weakness but less pronounced than on admission. OBJECTIVE: VITAL SIGNS: Heart rate is 99, blood pressure is 119/64. NECK: Thick. There is no distinct jugular venous distention. LUNGS: Revealed mildly diminished breath sounds that are clear. CARDIOVASCULAR: Irregularly irregular with harsh grade 2/6 systolic murmur. There is no diastolic murmur. ABDOMEN: Soft. EXTREMITIES: Reveal trace edema, less pronounced in thighs and calves. LABORATORY DATA: White cell count is down to 10.6, hemoglobin is 11.7, sodium is 131, potassium is 4.3, chloride is 95, bicarb is 32, BUN is 46, creatinine is 2.3, glucose is 174, hemoglobin A1c was 8.4. Telemetry reveals atrial fibrillation flutter without profound bradyarrhythmias or pauses, mildly elevated average heart rate. Echocardiogram done yesterday demonstrated mild left ventricular hypertrophy, hypokinesis of the inferior posterior wall with diffuse hypokinesis of all other segments. EF 40-45% with borderline severe aortic stenosis. IMPRESSION: An 86-year-old male admitted with multifactorial decline with multiple falls recently. Troponins are mildly elevated, although flat without acute evidence to suggest acute injury pattern. Chronic atrial fibrillation demonstrates elevated ventricular response rates. RECOMMENDATIONS: We will increase carvedilol to 6.25 mg twice per day for heart rate control. No signs or symptoms of fluid or volume overload. LV systolic function has diminished in comparison to prior studies. We will attempt to optimize medical therapies. The patient appears to improve predominantly through antibiotic therapies, though without culture positive abnormalities. We will gradually increase activities. Disposition will need to be addressed with the patient and family.
[2017-03-12] MEDS ORDERED: INSULIN GLARGINE SOLOSTAR 100 UNITS/ML 3 ML PEN SC ONE (12:30)
--- NOTE | 2017-03-12 12:38 | Pharmacy Progress Note ---
Glycemic Control Progress Note Date of Service Mar 12, 2017. Scope Glycemic Pharmacist consulted for glycemic control to write orders per [facility] inpatient glycemic control protocol. Objective Accuchecks BSG (last 24hrs): Test 03/11/17 16:08 03/11/17 20:22 03/12/17 05:15 03/12/17 06:40 Bedside Glucose 181 mg/dl (70-99) 263 mg/dl (70-99) 182 mg/dl (70-99) Random Glucose 174 mg/dl (70-99) Test 03/12/17 11:23 Bedside Glucose 267 mg/dl (70-99) HbA1c: Test 03/12/17 05:15 Hemoglobin A1c 8.4 % (4.5-5.6) H Recent Pertinent Medications The patient is currently receiving: * Basal insulin: Lantus 10 units every 12 hours * Correctional Insulin: Novolog Correction per scale ACHS Goal Range: Low 140 mg/dL - High 180 mg/dL Correction Factor: 15 mg/dL/unit * Prandial insulin: Per carb ratio of 1 unit per 5 grams CHO consumed Outpatient Anti-Diabetic Meds NovoLog 70/30 premixed insulin, 10 units SQ BIDM Assessment & Plan ASSESSMENT: * See progress note from 03/11/17 for more background info, in short: * Pt receiving SQ basal bolus insulin regimen for hyperglycemia secondary to baseline DM (outpatient regimen on hold) & stress/infection * Patient received 49 units of insulin over the past 24 hours: * 20 units of basal insulin * 29 units of prandial/correctional insulin * BSGs ranging 174 - 350 mg/dl over the past 24hrs * Changes needed to insulin regimen: * AM Fasting BSG = 182 mg/dl. This is above goal range for patient based on inpatient targets and co-morbidities. Therefore Basal insulin needs increased. * Post-prandial BSGs are elevated indicating a need for additional bolus insulin, however, CF/CR is already at a weight/stress of 3. I expect prandial BSGs to improve with increase in Lantus. Will tighten CF for lunch and dinner today to help get patient back on track, then return to 24/11. PLAN FOR INPATIENT GLYCEMIC CONTROL: * Basal insulin - increase * Give additional Lantus 5 units now * Lantus 10-15 units SQ BID -10 units for BSG less than 140 mg/dL -15 units for BSG 140 mg/dL or more * Bolus insulin - tighten * NovoLog per scale ACHS or Q6hrs while NPO * Lower Goal Range: Low 110 mg/dL - High 150 mg/dL * Correction Factor: 12 mg/dL/unit --> resume CF of 15 at 2100 tonight * Nutritional / Prandial insulin per carb ratio of 1 unit per 5 grams CHO consumed RECOMMENDATIONS FOR DISCHARGE: * * Please note that the plan above was derived based on current level of insulin resistance and hospital stress. These recommendations are appropriate for inpatient admission only. Plan of care upon discharge will need to be reassessed to avoid potential outpatient hypo/hyperglycemia. Thank you.
[2017-03-12] MEDS: CEFTRIAXONE SOD INJ 1 GM in DEXTROSE 5% ADD-VANTAGE 50ML 50 ML IV SCH (19:09)
[2017-03-12] MEDS: HYDROCODONE/ACETAMOPHEN 5/325MG TAB PO SCH (21:01)
[2017-03-12] MEDS: SIMVASTATIN 20 MG TAB PO SCH (21:01)
[2017-03-12] MEDS: INSULIN GLARGINE SOLOSTAR 100 UNITS/ML 3 ML PEN SC SCH (21:03)
[2017-03-13] VITALS (7 sets, daily range): BP systolic 121–137; BP diastolic 61–77; PULSE 70–99; TEMP 36.4–36.8; O2SAT 96–99
[2017-03-13] MEDS: LEVOTHYROXINE 100 MCG TAB PO SCH (06:12)
[2017-03-13] MEDS: DOXYCYCLINE IV 100 MG in DEXTROSE 5% 100ML 100 ML IV SCH ×2 (06:13→19:10)
[2017-03-13] MEDS: HEPARIN SOD 5000 UNIT/0.5 ML CARP SQ SCH ×3 (06:13→21:33)
[2017-03-13 07:03] LABS: HEMATOCRIT 33.7 % (42-52); MEAN CELL VOLUME 98.3 fL (80-100); MEAN CORPUSCULAR HEMOGLOBIN 32.4 pg (25-34); MEAN CORPUSCULAR HGB CONC 32.9 g/dl (32-36); MEAN PLATELET VOLUME 12.8 fL (7.4-10.4); PLATELET COUNT 137 K/uL (130-400); RED BLOOD COUNT 3.43 M/uL (4.7-6.1); WHITE BLOOD COUNT 8.26 K/uL (4.8-10.8)
[2017-03-13] MEDS: POLYETHYLENE (MIRALAX) 17 GM PACK PO SCH (07:32)
[2017-03-13] MEDS: ASPIRIN 81 MG ECTAB PO SCH (07:34)
[2017-03-13] MEDS: ALLOPURINOL 300 MG TAB PO SCH (07:34)
[2017-03-13] MEDS: MULTIVITAMIN TAB PO SCH (07:34)
[2017-03-13] MEDS: CARVEDILOL 3.125 MG TAB PO SCH (07:34)
[2017-03-13] MEDS: DOCUSATE SODIUM 100 MG CAP PO SCH (07:34)
[2017-03-13] MEDS: PANTOprazole SOD 40 MG TAB PO SCH (07:34)
[2017-03-13 07:35] LABS: BUN/CREATININE RATIO 24.9 (10-20); CALCIUM 9.1 mg/dl (8.5-10.1); CREATININE 1.9 mg/dl (0.60-1.40); POTASSIUM 4.3 mmol/L (3.5-5.1)
[2017-03-13] MEDS: ISOSORBIDE MONONITRATE 30 MG TABCR PO SCH (07:35)
[2017-03-13] MEDS: CHOLECALCIFEROL 1000 INTER.UNIT TAB PO SCH (07:35)
[2017-03-13] MEDS: OMEGA-3 (PURIFIED FISH OIL) 1 GM CAP PO SCH (07:35)
[2017-03-13] MEDS: INSULIN GLARGINE SOLOSTAR 100 UNITS/ML 3 ML PEN SC SCH (07:42)
[2017-03-13] MEDS: INSULIN ASPART 100 UNITS/ML 3 ML PEN SC SCH ×4 (07:42→21:32)
[2017-03-13] MEDS: HYDROCODONE/ACETAMOPHEN 5/325MG TAB PO SCH (08:47)
--- NOTE | 2017-03-13 10:08 | CARDIOLOGY PROGRESS NOTE ---
DATE: 03/13/2017 DATE: 03/13/2017 The patient seen and examined. Chart, medications, telemetry reviewed. SUBJECTIVE: The patient feels improved this morning, anxious to begin increasing activities. Denies any chest pains, worsening shortness of breath. Does have a loose cough with minimal sputum production. Denies any chest pain or discomfort. Notes no dizziness or lightheadedness. Has been minimally active in the hospital. OBJECTIVE: VITAL SIGNS: Heart rates improved in the 70s and 80s this morning, blood pressure is 136/71, O2 saturations 98% on 2 liters nasal cannula. NECK: Thick. There is no jugular venous distention. LUNGS: Reveal few scattered crackles at the bases. CARDIOVASCULAR EXAMINATION: Irregular, irregular with a grade 2/6 systolic murmur. There is no diastolic murmur. ABDOMEN: Soft, nontender. EXTREMITIES: Without cyanosis or clubbing. There is diminished edema. LABORATORY DATA: Sodium is 133, potassium is 4.3, chloride is 98, bicarb 28, BUN is 47, creatinine is 1.9. White cell count is 8.2, hemoglobin is 11.1. IMPRESSION: An 86-year-old male admitted with multifactorial decline, multiple falls seen now in followup. He is clinically improved in hospital predominantly with the use of IV antibiotics, cautious diuresis. White cell count is improved. Renal function has actually improved. PLAN: Continue current medical therapies with increased dose of carvedilol for heart rate control. We will consider reinstituting Demadex oral dosing in a.m. Chest x-ray will be ordered today and reviewed. Physical therapy should be consulted. Consideration made for rehab or extended care facility for this patient demonstrating gradual decline.
--- NOTE | 2017-03-13 11:03 | Pharmacy Progress Note ---
Glycemic Control Progress Note Date of Service Mar 13, 2017. Scope Glycemic Pharmacist consulted for glycemic control to write orders per [facility] inpatient glycemic control protocol. Objective Accuchecks BSG (last 24hrs): Test 03/12/17 11:23 03/12/17 16:33 03/12/17 20:49 03/13/17 06:19 Bedside Glucose 267 mg/dl (70-99) 228 mg/dl (70-99) 148 mg/dl (70-99) 172 mg/dl (70-99) Test 03/13/17 06:32 Random Glucose 175 mg/dl (70-99) HbA1c: Test 03/12/17 05:15 Hemoglobin A1c 8.4 % (4.5-5.6) H Recent Pertinent Medications The patient is currently receiving: * Basal insulin: Lantus 15 units every 12 hours * Correctional Insulin: Novolog Correction per scale ACHS Goal Range: Low 140 mg/dL - High 180 mg/dL Correction Factor: 15 mg/dL/unit * Prandial insulin: Per carb ratio of 1 unit per 5 grams CHO consumed Outpatient Anti-Diabetic Meds Premixed Novolog 70/30 insulin * 10 units SQ BID with meals Assessment & Plan ASSESSMENT: * See progress note from 03/12/17 for more background info, in short: * Pt receiving SQ basal bolus insulin regimen for hyperglycemia secondary to baseline DM (outpatient regimen on hold) & stress/infection * Patient received 63 units of insulin over the past 24 hours (~28% increase compared to 03/11): * 30 units of basal insulin * 33 units of prandial/correctional insulin * BSGs ranging 172 - 267 mg/dl over the past 24hrs * Changes needed to insulin regimen: * AM Fasting BSG = 172 mg/dl. This is slightly improved but remains above goal range for patient based on inpatient targets and co-morbidities. I am hesitant to further increase basal insulin today since Lantus was increased by >30% yesterday - Fasting BSG should continue to improve as drug gets closer to steady state. * Post-prandial BSGs are improving. CF was tightened yesterday for lunch and dinner to help get patient back on track, then returned to 15/5 at 2100. Will resume tighter CF/CR today to aid in BSG control until full effect of Lantus is seen. PLAN FOR INPATIENT GLYCEMIC CONTROL: * Basal insulin * Lantus 15 SQ qAM * Lantus 15-18 units SQ qPM -15 units for BSG less than 140 mg/dL -18 units for BSG 140 mg/dL or more * Bolus insulin * NovoLog per scale ACHS or Q6hrs while NPO * Continue Goal Range: Low 110 mg/dL - High 150 mg/dL * Tighten Correction Factor: 12 mg/dL/unit * Continue Nutritional / Prandial insulin per carb ratio of 1 unit per 4 grams CHO consumed RECOMMENDATIONS FOR DISCHARGE: * * Please note that the plan above was derived based on current level of insulin resistance and hospital stress. These recommendations are appropriate for inpatient admission only. Plan of care upon discharge will need to be reassessed to avoid potential outpatient hypo/hyperglycemia. Thank you.
[2017-03-13] MEDS: HYDROCODONE/ACETAMOPHEN 5/325MG TAB PO PRN ×2 (13:06→21:44)
--- NOTE | 2017-03-13 13:48 | DIAGNOSTIC IMAGING REPORT ---
CHEST ONE VIEW PORTABLE CLINICAL HISTORY: Cough, dyspnea. COMPARISON STUDY: 03/10/2017 FINDINGS: The heart is enlarged. There are postsurgical changes of a midline sternotomy. There is stable aortic tortuosity/ectasia. There is diffuse elevation of the interstitium. Mild congestive failure/fluid overload is suspected. There is blunting right lateral costophrenic angle suggesting small pleural effusion. Right basilar airspace opacities are likely atelectatic.[ IMPRESSION: Cardiomegaly and radiographic evidence of mild congestive failure/fluid overload similar to the preceding study. Small right pleural effusions with right basilar airspace opacities likely atelectatic Electronically signed by: Kevin Cleaning M.D. 03/13/2017 1:47 PM Dictated Date/Time: 03/13/2017 1:45 PM
--- NOTE | 2017-03-13 15:06 | Progress Note ---
Subjective Date of Service: Mar 13, 2017. Subjective Pt evaluation today including: conversation w/ patient, physical exam, lab review, review of studies, review of inpatient medication list Saw/examined the patient in room 208 +weakness; +fatigue +R hip pain no shortness of breath, no chest pain Problem List Medical Problems: (1) Acute exacerbation of CHF (congestive heart failure) Status: Acute (2) Acute renal failure (ARF) Status: Acute (3) Anemia Status: Acute (4) Chest pain Status: Acute (5) Elevated brain natriuretic peptide (BNP) level Status: Acute (6) Hip pain Status: Acute (7) Shortness of breath Status: Acute (8) Troponin I above reference range Status: Acute Review of Systems Constitutional: + weakness Respiratory: No cough, No sputum, No wheezing, No shortness of breath, No dyspnea on exertion Cardiac: No chest pain, No edema, No palpitations Abdomen: No pain, No nausea, No vomiting, No diarrhea Musculoskeletal: + joint pain (R hip pain) Medications Current Inpatient Medications Medications (Trade) Dose Ordered Sig/Leonarda Route Start Time Stop Time Status Last Admin Dose Admin Heparin Sodium (Porcine) (Heparin Sq 5000 Unit/0.5ml) 5,000 unit Q8 SQ 03/10/17 22:00 04/09/17 21:59 03/13/17 13:09 5,000 UNIT Acetaminophen (Tylenol Tab) 650 mg Q4H PRN PO 03/10/17 16:15 04/09/17 16:14 Ondansetron HCl (Zofran Inj) 4 mg Q6H PRN IV 03/10/17 16:15 04/09/17 16:14 Nitroglycerin (Nitrostat Tab) 0.4 mg UD PRN SL 03/10/17 16:15 04/09/17 16:14 Allopurinol (Zyloprim Tab) 300 mg QAM PO 03/11/17 09:00 04/10/17 08:59 03/13/17 07:34 300 MG Aspirin (Ecotrin Tab) 81 mg QAM PO 03/11/17 09:00 04/10/17 08:59 03/13/17 07:34 81 MG Calcitriol (Rocaltrol Cap) 0.25 mcg MoTh@0900 PO 03/12/17 09:00 04/11/17 08:59 03/12/17 08:54 0.25 MCG Cholecalciferol (Vitamin D Tab) 2,000 inter.unit QAM PO 03/11/17 09:00 04/10/17 08:59 03/13/17 07:35 2,000 INTER.UNIT Docusate Sodium (coLACE CAP) 100 mg BID PO 03/10/17 21:00 04/09/17 20:59 03/13/17 07:34 100 MG Acetaminophen/ Hydrocodone Bitart ([place] 5/325 Tab) 1 tab Q6H PRN PO 03/10/17 17:00 03/24/17 16:59 03/13/17 13:06 1 TAB Isosorbide Mononitrate (Imdur Ext Rel Tab) 30 mg QAM PO 03/11/17 09:00 04/10/17 08:59 03/13/17 07:35 30 MG Levothyroxine Sodium (Synthroid Tab) 100 mcg DAILYBB PO 03/11/17 06:00 04/10/17 06:59 03/13/17 06:12 100 MCG Multivitamins (Multivitamin Tab) 1 tab QAM PO 03/11/17 09:00 04/10/17 08:59 03/13/17 07:34 1 TAB Simvastatin (Zocor Tab) 20 mg QPM PO 03/10/17 21:00 04/09/17 20:59 03/12/17 21:01 20 MG Miscellaneous Information (Order Awaiting Action) 1 ea QS N/A 03/11/17 00:00 04/10/17 00:00 Fish Oil ([place]-3 (Purified Fish Oil) Cap) 1 gm DAILY PO 03/11/17 09:00 04/10/17 08:59 03/13/17 07:35 1 GM Pantoprazole Sodium (Protonix Tab) 40 mg QAM PO 03/11/17 09:00 04/10/17 08:59 03/13/17 07:34 40 MG Ceftriaxone Sodium 1 gm/ Dextrose 50 ml @ 100 mls/hr Q24H IV 03/10/17 18:00 03/20/17 17:59 03/12/17 19:09 100 MLS/HR Doxycycline Hyclate 100 mg/ Dextrose 110 ml @ 50 mls/hr BID@0700,1900 IV 03/10/17 19:00 03/17/17 18:59 03/13/17 06:13 50 MLS/HR Glucose (Glucose 40% Gel) 15-30 GRAMS 15 GRAMS... UD PRN PO 03/10/17 17:15 04/09/17 17:14 Glucose (Glucose Chew Tab) 4-8 Tablets 4 Tabl... UD PRN PO 03/10/17 17:15 04/09/17 17:14 Dextrose (Dextrose 50% 50ML Syringe) 25-50ML OF 50% DW IV FOR... UD PRN IV 03/10/17 17:15 04/09/17 17:14 Glucagon (Glucagon Inj) 1 mg UD PRN SQ 03/10/17 17:15 04/09/17 17:14 Polyethylene (Miralax Powder Packet) 17 gm DAILY PO 03/10/17 19:15 04/09/17 19:14 03/13/17 07:32 17 GM Miscellaneous Information (Consult Glycemic Management Pharmacy) 1 ea UD PRN N/A 03/11/17 12:01 04/10/17 12:00 Carvedilol (Coreg Tab) 6.25 mg BID PO 03/12/17 21:00 04/09/17 17:59 03/13/17 07:34 6.25 MG Acetaminophen/ Hydrocodone Bitart ([place] 5/325 Tab) 1 tab BID PO 03/12/17 21:00 03/26/17 20:59 03/13/17 08:47 1 TAB Insulin Glargine (Lantus Solostar Pen) see protocol text BID SC 03/12/17 21:00 04/11/17 20:59 03/13/17 07:42 15 UNITS Insulin Aspart (novoLOG ASPART) SLIDING SCALE If C... ACHS SC 03/12/17 21:00 04/11/17 20:59 03/13/17 13:08 16 UNITS Insulin Aspart (novoLOG ASPART) SLIDING SCALE If C... 0000,0400 GA 03/14/17 00:00 03/14/17 04:01 Objective Vital Signs Date Time Temp Pulse Resp B/P (MAP) Pulse Ox O2 Delivery O2 Flow Rate FiO2 03/13/17 12:03 36.7 90 18 122/61 (81) 98 Nasal Cannula 2.0 03/13/17 12:00 Nasal Cannula 2.0 03/13/17 08:00 36.8 99 18 137/77 (97) 96 03/13/17 08:00 Nasal Cannula 2.0 03/13/17 04:00 Nasal Cannula 2.0 03/13/17 03:03 36.6 92 22 136/71 (92) 99 Nasal Cannula 2.0 03/13/17 00:00 Nasal Cannula 2.0 03/12/17 23:33 36.8 83 16 104/44 (64) 98 Nasal Cannula 2.0 03/12/17 20:45 36.6 84 20 138/70 (92) 96 Nasal Cannula 2.0 03/12/17 20:00 Nasal Cannula 2.0 03/12/17 16:33 97 Nasal Cannula 2.0 03/12/17 16:17 37.2 87 28 137/77 (97) 97 Nasal Cannula 2.0 03/12/17 16:00 Nasal Cannula 2.0 Physical Exam General Appearance: no apparent distress Respiratory/Chest: chest non-tender, lungs clear, normal breath sounds, no respiratory distress, no accessory muscle use Cardiovascular: no edema, + systolic murmur, + irregularly irregular Abdomen: normal bowel sounds, non tender, soft Extremities: normal inspection, no pedal edema Laboratory Results Last 24 Hours Test 03/12/17 16:33 03/12/17 20:49 03/13/17 06:19 03/13/17 06:32 Bedside Glucose 228 mg/dl 148 mg/dl 172 mg/dl White Blood Count 8.26 K/uL Red Blood Count 3.43 M/uL Hemoglobin 11.1 g/dL Hematocrit 33.7 % Mean Corpuscular Volume 98.3 fL Mean Corpuscular Hemoglobin 32.4 pg Mean Corpuscular Hemoglobin Concent 32.9 g/dl RDW Standard Deviation 50.8 fL RDW Coefficient of Variation 14.3 % Platelet Count 137 K/uL Mean Platelet Volume 12.8 fL Sodium Level 133 mmol/L Potassium Level 4.3 mmol/L Chloride Level 98 mmol/L Carbon Dioxide Level 28 mmol/L Anion Gap 7.0 mmol/L Blood Urea Nitrogen 47 mg/dl Creatinine 1.90 mg/dl Est Creatinine Clear Calc Drug Dose 31.5 ml/min Estimated GFR () 36.4 Estimated GFR (Non- 31.4 BUN/Creatinine Ratio 24.9 Random Glucose 175 mg/dl Calcium Level 9.1 mg/dl Test 03/13/17 11:00 Bedside Glucose 233 mg/dl Assessment and Plan This is an 86 year old male with a PMH of paroxysmal atrial fibrillation/flutter , CAD s/p CABG, aortic stenosis, chronic diastolic CHF, HTN, DM2, CKD stage 3, NII and uses 2L nocturnal O2, hypothyroidism presents secondary to a mechanical fall, functional decline Mechanical Fall Functional Decline Deconditioning 03/13 plan for d/c to SNF today will d/c with his home regimen of his narcotics Coreg dose is increased for his rate control continue Demadex on discharge Augmentin to total 7 days for possible URI vs. UTI nocturnal O2 03/12 continue PT/OT added [place] 5/325 BID scheduled and then PRN order as well; he takes this up to five times daily at home will need rehab 03/11 patient is 86 years old, lives alone, has had issues with gait, uses a walker at baseline for ambulation and fell out a lift chair States he has some pain at the R hip patient is on chronic [place] at home, which we can continue for now PT/OT discharge planning eval - will likely need placement A. Flutter with RVR - Improving 03/12 HRs are still elevated, possibly pain induced Coreg dose increased slightly as per cardio; appreciate input hold Lasix 03/11 HRs elevated, likely secondary to pain and the fall Coreg was increased slightly to 3.25mg BID HRs are now improved to the 80s-100s will need to monitor in tele to monitor for any bradyarrhythmias not a candidate for anticoagulation due to age and fall risk Leukocytosis UTI vs. URI? UA does not seem infected - though patient had been on Bactrim recently urine culture/blood cultures pending currently on Doxy and Rocephin empirically, which we can continue Chronic Diastolic CHF Aortic Stenosis 03/12 not likely an acute CHF he has aortic stenosis, though not critical 03/11 mild fluid overload on 03/12 currently seems euvolemic given one dose of IV Lasix no additional Lasix needed for now appreciate cardiology input NII nocturnal O2 - 2L CAD s/p CABG no acute issues continue aspirin, Coreg, statin cardiac enzymes mildly elevated, though no additional increase: likely secondary to tachycardia and infection HTN BP improving with increase in Coreg for now continue b-bhavya and monitor DM2 insulin sliding scale was started BSGs not controlled >200 consistently will tighten sliding scale add Lantus 5 units BID CKD stage 4 creatinine is around 2.2, which seems to be baseline avoid nephrotoxic agents if able Hypothyroidism continue Synthroid DVT ppx subq heparin DNR
[2017-03-13] MEDS ORDERED: CARV6.252 PO (15:08)
[2017-03-13] MEDS ORDERED: HYDR-5688 PO ×2 (15:08→15:30)
[2017-03-13] MEDS ORDERED: DXY100 PO ×2 (15:19→15:30)
--- NOTE | 2017-03-13 15:28 | Discharge Instructions ---
Discharge Instructions Date of Service Mar 13, 2017. Admission Reason for Admission: FALL Discharge Discharge Diagnosis / Problem: Mechanical Fall, A. Fib with RVR, Aortic Stenosis Discharge Goals Goal(s): Decrease discomfort, Improve function, Diagnostic testing, Therapeutic intervention Activity Recommendations Activity Level: Up Ad Nurys Therapies: Physical Therapy, Occupational Therapy . Additional Information Patient informed of condition: Yes Advance Directives: Yes DNR: Yes Level of Care: Acute Rehab Communicable Disease: No Prognosis: Stable Oxygen at (LPM): Nocturnal Instructions / Follow-Up Instructions / Follow-Up Patient to be discharged on higher dose of Coreg as well as doxycycline for a possible URI Restarted Torsemide; repeat BMP in 1 week Current Hospital Diet Patient's current hospital diet: AHA Diet (Heart Healthy), Diabetes Type 2 Diet Discharge Diet Recommended Diet: AHA Diet (Heart Healthy), Diabetes Type 2 Diet Pending Studies Studies pending at discharge: no Laboratory Results Hemoglobin A1c Test 03/12/17 05:15 Range/Units Estimated Average Glucose 194 mg/dl Hemoglobin A1c 8.4 H 4.5-5.6 % Medical Emergencies . Who to Call and When: Medical Emergencies: If at any time you feel your situation is an emergency, please call 911 immediately. . Non-Emergent Contact Non-Emergency issues call your: Primary Care Provider . . "Provider Documentation" section prepared by Manuel Hernandez. . Core Measure Problem Core Measures: None
--- NOTE | 2017-03-13 15:31 | Discharge Summary ---
Discharge Summary Date of Service Mar 13, 2017. Discharge Summary Admission Date: Mar 10, 2017 at 16:18 Discharge Date: Mar 13, 2017 Discharge Disposition: nursing home facility Principal Diagnosis: Mechanical Fall A. Fib with RVR Aortic Stenosis; Valvular Heart Disease Medication Reconciliation New Medications: Doxycycline Hyclate (Doxycycline Hyclate) 100 Mg Cap 100 MG PO BID for 5 Days, #10 CAP Changed Medications: Carvedilol (Coreg) 6.25 Mg Tab 1 TAB PO BID for 30 Days, #60 TAB 5 Refills (Changed from: Carvedilol (Coreg) 3.125 Mg Tab 1 Tab PO DAILY 30 Days #30 TAB Ref 3) Continued Medications: Allopurinol (Allopurinol) 300 Mg Tab 300 MG PO QAM Aspirin Enteric Coated (Ecotrin Or Generic) 81 Mg Tab 81 MG PO QAM Calcitriol (Rocaltrol Cap) 0.25 Mcg Cap 0.25 MCG PO 2XWK TAKES THURSDAY AND THURSDAY Cholecalciferol (Vitamin D 1000 Unit) 1,000 Unit Cap 2000 INTER.UNIT PO QAM Docusate Sodium (Colace) 100 Mg Cap 100 MG PO BID Hydrocodone/Acetaminophen 5MG/325MG ([place] 5MG/325MG) Tab 1 TABLET PO 5XD PRN for Pain for 3 Days, #15 TABS (This prescription has been renewed) PRN PAIN Insulin Aspart 70/30 (Novolog Mix 70/30) Susp 10 UNITS SC BID, BTL Iron-Vitamin C (Vitron-C) 1 Tab Tab 1 TAB PO BID Isosorbide Mononitrate Ext Rel (Imdur Ext Rel) 30 Mg Tabcr 30 MG PO QAM Levothyroxine Sodium (Levothyroxine Sodium) 100 Mcg Tab 100 MCG PO QAM, 3 Refills Menthol-Zinc Oxide (Calmoseptine) 1 Oin Oin Multiple Vitamin (Multivitamin) 1 Tab Tab 1 TAB PO QAM [place]-3 Fatty Acids (Fish Oil) 1 Cap Cap 1 CAP PO DAILY Omeprazole (Prilosec) 40 Mg Cap 40 MG PO DAILY, CAP Simvastatin (Zocor) 20 Mg Tab 20 MG PO QPM Sodium Chloride (Inhalant) (Nasal Mist) 0.9 % Aer Torsemide (Demadex) 20 Mg Tab 40 MG PO DAILY, TAB Trolamine Salicylate (Aspercreme) 10 % Lot TOP DAILY PRN for Pain Discontinued Medications: Sulfamethoxazole-Trimethoprim (Smz-Tmp Ds) 1 Tab Tab 1 TAB PO BID Admission Information HPI (per Admitting provider): 86 year old male who presents to the ER after a fall and generalized weakness. Patient is somewhat a poor historian. Patient had a fall in the bathroom a few weeks ago. He reports progressive weakness since that time. Last night he was trying to get out of his recliner and he fell to the ground. He denies loss of coconsciousness or striking his head. No associated lightheadedness, dizziness, or chest pain. He called for his son who helped him back into the chair. Patient was to see his PCP today however was too weak to stand so EMS was called. Patient was started on Bactrim last week for possible UTI. Outpatient urine was not obtained. Patient has chronic lower extremity edema from lymphedema and uses pumps nightly. Son feels as though swelling was doing good until he fell last night. Patient reports chronic shortness of breath. He does not feel as though it is any worse than his baseline. He has had a cough productive for cream colored sputum. He has had a poor appetite the past few days. He denies abdominal pain, nausea, vomiting, or diarrhea. In the ER, WBC is 16K, troponin is mildly elevated, proBNP is elevated. Vitals are stable. EKG does not show any acute ST changes. Patient was given two baby aspirin and one oxycodone tablet. Xrays are negative for fractures. Physical Exam (per Admitting): General Appearance: no apparent distress Head: normocephalic, atraumatic Eyes: normal inspection, sclerae normal ENT: hearing grossly normal Neck: supple, no JVD Respiratory/Chest: no respiratory distress, + decreased breath sounds Cardiovascular: regular rate, rhythm, + pertinent finding (+2-3 edema BLLE, L > R ) Abdomen/GI: normal bowel sounds, non tender, soft Extremities/Musculoskelatal: normal inspection, no calf tenderness Neurologic/Psych: no motor/sensory deficits, alert, normal mood/affect, oriented x 3 Skin: normal color, warm/dry Hospital Course This is an 86 year old male with a PMH of paroxysmal atrial fibrillation/flutter , CAD s/p CABG, aortic stenosis, chronic diastolic CHF, HTN, DM2, CKD stage 3, NII and uses 2L nocturnal O2, hypothyroidism presents secondary to a mechanical fall, functional decline Mechanical Fall Functional Decline Deconditioning 03/13 plan for d/c to SNF today will d/c with his home regimen of his narcotics Coreg dose is increased for his rate control continue Demadex on discharge Augmentin to total 7 days for possible URI vs. UTI nocturnal O2 03/12 continue PT/OT added [place] 5/325 BID scheduled and then PRN order as well; he takes this up to five times daily at home will need rehab 03/11 patient is 86 years old, lives alone, has had issues with gait, uses a walker at baseline for ambulation and fell out a lift chair States he has some pain at the R hip patient is on chronic [place] at home, which we can continue for now PT/OT discharge planning eval - will likely need placement A. Flutter with RVR - Improving 03/12 HRs are still elevated, possibly pain induced Coreg dose increased slightly as per cardio; appreciate input hold Lasix 03/11 HRs elevated, likely secondary to pain and the fall Coreg was increased slightly to 3.25mg BID HRs are now improved to the 80s-100s will need to monitor in tele to monitor for any bradyarrhythmias not a candidate for anticoagulation due to age and fall risk Leukocytosis UTI vs. URI? UA does not seem infected - though patient had been on Bactrim recently urine culture/blood cultures pending currently on Doxy and Rocephin empirically, which we can continue Chronic Diastolic CHF Aortic Stenosis 03/12 not likely an acute CHF he has aortic stenosis, though not critical 03/11 mild fluid overload on 03/12 currently seems euvolemic given one dose of IV Lasix no additional Lasix needed for now appreciate cardiology input NII nocturnal O2 - 2L CAD s/p CABG no acute issues continue aspirin, Coreg, statin cardiac enzymes mildly elevated, though no additional increase: likely secondary to tachycardia and infection HTN BP improving with increase in Coreg for now continue b-bhavya and monitor DM2 insulin sliding scale was started BSGs not controlled >200 consistently will tighten sliding scale add Lantus 5 units BID CKD stage 4 creatinine is around 2.2, which seems to be baseline avoid nephrotoxic agents if able Hypothyroidism continue Synthroid DVT ppx subq heparin DNR Total time spent on discharge = 45 minutes This includes examination of the patient, discharge planning, medication reconciliation, and communication with other providers. Discharge Instructions Patient to be discharged on higher dose of Coreg as well as doxycycline for a possible URI Restarted Torsemide; repeat BMP in 1 week
[2017-03-13] MEDS: CEFTRIAXONE SOD INJ 1 GM in DEXTROSE 5% ADD-VANTAGE 50ML 50 ML IV SCH (17:56)
[2017-03-13] MEDS: SIMVASTATIN 20 MG TAB PO SCH (21:34)
[2017-03-14] MEDS ORDERED: INSULIN ASPART 100 UNITS/ML 3 ML PEN SC SCH
== END 2017-03-13 22:05 | DRG 948 ==
LOC: EDBD 11:36 → C.EDB 11:38 → C.2E 16:18 → ENRESERV 17:01 → C.MS4W 03-13 20:14
PROVIDERS: ADMIT Hospitalist; ATTEND Family Medicine
DX: R53.1 Weakness (principal); N39.0 Urinary tract infection, site not specified; I48.92 Unspecified atrial flutter; I50.32 Chronic diastolic (congestive) heart failure; I13.0 Hypertensive heart and chronic kidney disease with heart failure and stage 1 through stage 4 chronic kidney disease, or unspecified chronic kidney disease; N18.4 Chronic kidney disease, stage 4 (severe); R29.6 Repeated falls; I35.0 Nonrheumatic aortic (valve) stenosis; E11.22 Type 2 diabetes mellitus with diabetic chronic kidney disease; K21.9 Gastro-esophageal reflux disease without esophagitis; E78.5 Hyperlipidemia, unspecified; G47.33 Obstructive sleep apnea (adult) (pediatric); K59.00 Constipation, unspecified; I25.10 Atherosclerotic heart disease of native coronary artery without angina pectoris; E03.9 Hypothyroidism, unspecified; M25.551 Pain in right hip; Z66 Do not resuscitate; Z79.4 Long term (current) use of insulin; Z79.82 Long term (current) use of aspirin; Z79.899 Other long term (current) drug therapy; Z86.14 Personal history of Methicillin resistant Staphylococcus aureus infection; Z87.891 Personal history of nicotine dependence; Z91.81 History of falling; Z95.1 Presence of aortocoronary bypass graft; W07.XXXA Fall from chair, initial encounter; Y92.009 Unspecified place in unspecified non-institutional (private) residence as the place of occurrence of the external cause

== ENCOUNTER 2017-10-31 13:30 | Inpatient (IN) | payer OTHER ==
[~2017-10-31] VITALS: Ht 167.6 cm; Wt 102.7 kg
[2017-10-31] VITALS (9 sets, daily range): BP systolic 106–122; BP diastolic 70–72; PULSE 73–99; TEMP 36.8–37.2; O2SAT 88–95; Ht 167.6 cm; Wt 102.7 kg
[~2017-10-31 13:30] MED LIST changes: +ASPI-319 PO; -ASPI81TA21 PO; +CALC0.25 PO; -CALC0.5C17 PO; -CARV12.52 PO; +CARV6.252 PO; +DOCU-94 PO; +DXY100 PO; -FERR-24 PO; +FERRTAB18 PO; -FISHOIL PO; +MENTOIN; +OMEGCAP2 PO; -OMEP40CA36 PO; +OMEP40CA41 PO; +TROL10LO TOP; +[UNRECOGNIZED DRUG - CODE]
--- NOTE | 2017-10-31 13:51 | EMERGENCY ROOM VISIT NOTE ---
History Report prepared by Diana: Rl Gooden Under the Supervision of: Dr. Avery Garrison M.D. First contact with patient: 13:40 Stated Complaint: ILLNESS/SHORTNESS OF BREATH History of Present Illness The patient is a 87 year old male who presents to the Emergency Room with complaints of worsening, severe shortness of breath beginning 1 week ago. The nurse in the room reports that the patient has been experiencing generalized illness for the past week. According to the nurse in the room, the patient wears 3L of O2 regularly and lives at home with his son. She states that the patient has been producing minimal urinary output. The patient denies experiencing any pain or fevers. The patient is DNR. HPI limited secondary to patient's dementia. Source of History: patient, nursing staff History Limited By: dementia Position: other (global) Symptom Intensity: severe Timing: worsening Associated Symptoms: No fevers Note: Denies: Body pain Associated Symptoms: Generalized illness. Review of Systems ROS limited secondary to patient's dementia. 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 Nurse's notes were reviewed and I agree with. Family History Omitted secondary to age Social History Smoking Status: Former Smoker Alcohol Use: none Housing Status: lives alone Current/Historical Medications Scheduled Allopurinol (Allopurinol), 300 MG PO QAM Aspirin Enteric Coated (Ecotrin Or Generic), 81 MG PO QAM Atorvastatin (Lipitor), 20 MG PO DAILY Calcitriol (Rocaltrol Cap), 0.25 MCG PO 2XWK Carvedilol (Coreg), 1 TAB PO BID Cholecalciferol (Vitamin D 1000 Unit), 2,000 INTER.UNIT PO QAM Insulin Aspart 70/30 (Novolog Mix 70/30), Unknown Dose SC BID Iron-Vitamin C (Vitron-C), 1 TAB PO BID Isosorbide Mononitrate Ext Rel (Imdur Ext Rel), 30 MG PO QAM Levothyroxine Sodium (Levothyroxine Sodium), 100 MCG PO QAM Metolazone (Zaroxolyn), 5 MG PO DAILY Multiple Vitamin (Multivitamin), 1 TAB PO QAM [place]-3 Fatty Acids (Fish Oil), 1 CAP PO DAILY Omeprazole (Prilosec), 40 MG PO DAILY Potassium Ext Rel (Klor-Con), 60 MEQ PO UD Torsemide (Demadex), 40 MG PO BID Torsemide (Demadex), 40 MG PO DAILY Scheduled PRN Hydrocodone/Acetaminophen 5MG/325MG ([place] 5MG/325MG), 1 TABLET PO 5XD PRN for Pain Miscellaneous Medications Sodium Chloride (Inhalant) (Nasal Mist) Allergies Coded Allergies: Penicillins (Verified Allergy, Intermediate, hives, 10/31/17) Physical Exam Vital Signs Date Time Temp Pulse Resp B/P (MAP) Pulse Ox O2 Delivery O2 Flow Rate FiO2 10/31/17 15:01 96/42 Oxymask 6.0 10/31/17 15:00 73 29 92 Oxymask 6.0 10/31/17 14:34 76 Room Air 10/31/17 14:31 107/53 Oxymask 6.0 10/31/17 14:30 94 30 91 Oxymask 6.0 10/31/17 14:14 100/48 10/31/17 14:00 73 28 89 10/31/17 13:44 93/52 10/31/17 13:43 97 10/31/17 13:41 76/47 10/31/17 13:31 91 Oxymask 10/31/17 13:30 78 Room Air 10/31/17 13:30 37.2 98 18 93/52 78 Room Air Physical Exam General: Chronically-ill appearing older male wearing supplemental oxygen. The patient answers some questions appropriately HEENT: Normal cephalic atraumatic. Pupils are equal round and reactive to light. Extraocular movements are intact. Oropharynx is pink with moist mucous membranes. No swelling of the mouth lips or tongue. Neck: Supple with a midline trachea. No meningeal signs or stiffness, no JVD or bruits. No Stridor. Chest: Rhonchorous bilaterally. Heart: regular rate and rhythm. Abdomen: Soft nontender, nondistended without rebound guarding or rigidity. Extremities: Bilateral lower extremity edema. Spine/Back. Non tender to palpation. No CVA tenderness Skin: Good turgor without rashes. Neurologic exam: Cranial nerves two through 12 are intact. Motor and sensation are intact and symmetrical throughout. Medical Decision & Procedures ER Provider Diagnostic Interpretation: Radiology results as stated below per my review and radiologist interpretation: SINGLE VIEW CHEST CLINICAL HISTORY: Sepsis. FINDINGS: An AP, portable, upright chest radiograph is compared to study dated 03/13/2017 and correlated with chest CT dated 07/01/2015. The examination is degraded by portable technique and patient rotation. The patient is status post midline sternotomy. The heart is enlarged and there is atherosclerotic calcification of the thoracic aorta. There is pulmonary vascular congestion with evidence of interstitial edema. There are layering pleural effusions with bibasilar consolidation. No pneumothorax is seen. The skeletal structures are osteopenic. The bony thorax is grossly intact. IMPRESSION: 1. Cardiomegaly with evidence of congestive failure and interstitial edema. 2. Layering pleural effusions with bibasilar consolidation. This likely represents atelectasis. Correlate clinically for evidence of superimposed pneumonia. Electronically signed by: Oh Pink M.D. 10/31/2017 3:09 PM Dictated Date/Time: 10/31/2017 3:07 PM Laboratory Results 10/31/17 14:08 Red Blood Count 3.70, Mean Corpuscular Volume 100.0, Mean Corpuscular Hemoglobin 32.4, Mean Corpuscular Hemoglobin Concent 32.4 10/31/17 14:08 Test 10/31/17 14:07 10/31/17 14:08 10/31/17 14:13 Bedside Lactic Acid Venous 6.81 mmol/L (0.90-1.70) White Blood Count 3.03 K/uL (4.8-10.8) Red Blood Count 3.70 M/uL (4.7-6.1) Hemoglobin 12.0 g/dL (14.0-18.0) Hematocrit 37.0 % (42-52) Mean Corpuscular Volume 100.0 fL (80-100) Mean Corpuscular Hemoglobin 32.4 pg (25-34) Mean Corpuscular Hemoglobin Concent 32.4 g/dl (32-36) Platelet Count 43 K/uL (130-400) RDW Standard Deviation 59.7 fL (36.4-46.3) RDW Coefficient of Variation 16.1 % (11.5-14.5) Neutrophils % (Manual) 79.6 % Lymphocytes % (Manual) 7.1 % Monocytes % (Manual) 4.4 % Eosinophils % (Manual) 0.9 % Basophils % (Manual) 0.9 % (0-2) Metamyelocytes % 6.2 % Myelocytes % 0.9 % Neutrophils # (Manual) 2.41 K/uL (1.4-6.5) Total Absolute Neutrophils 2.41 K/uL (1.4-6.5) Lymphocytes # (Manual) 0.22 K/uL (1.2-3.4) Total Absolute Lymphocytes 0.22 K/uL (1.2-3.4) Monocytes # (Manual) 0.13 K/uL (0.11-0.59) Eosinophils # (Manual) 0.03 K/uL (0-0.5) Basophils # (Manual) 0.03 K/uL (0-0.2) Metamyelocytes # 0.19 K/uL (0-0) Myelocytes # 0.03 K/uL (0-0) Toxic Vacuolation OCCASIONAL Dohle Bodies 1+ Platelet Estimate SIGNIFIC DECREASED Giant Platelets 2+ Ovalocytes 2+ Prothrombin Time 12.4 SECONDS (9.0-12.0) Prothromb Time International Ratio 1.2 (0.9-1.1) Activated Partial Thromboplast Time 34.8 SECONDS (21.0-31.0) Partial Thromboplastin Ratio 1.3 Venous Blood pH 7.28 (7.36-7.41) Venous Blood Partial Pressure CO2 58 mmHg (38.0-50.0) Venous Blood Partial Pressure O2 33 mmHg Venous Blood HCO3 26 mmol/L Venous Blood Oxygen Saturation < 60.0 % Venous Blood Base Excess -1.2 mEq/L Anion Gap 10.0 mmol/L (3-11) Est Creatinine Clear Calc Drug Dose 16.4 ml/min Estimated GFR () 16.5 Estimated GFR (Non- 14.3 BUN/Creatinine Ratio 16.0 (10-20) Calcium Level 8.3 mg/dl (8.5-10.1) Total Bilirubin 1.2 mg/dl (0.2-1) Aspartate Amino Transf (AST/SGOT) 111 U/L (15-37) Alanine Aminotransferase (ALT/SGPT) 60 U/L (12-78) Alkaline Phosphatase 114 U/L (45-117) Pro-B-Type Natriuretic Peptide > 90497 pg/ml (0-1800) Total Protein 6.4 gm/dl (6.4-8.2) Albumin 2.8 gm/dl (3.4-5.0) Globulin 3.6 gm/dl (2.5-4.0) Albumin/Globulin Ratio 0.8 (0.9-2) Bedside Troponin I 0.460 ng/ml (0-0.045) Laboratory studies as stated above per my review. Medications Administered Medications (Trade) Dose Ordered Sig/Leonarda Route Start Time Stop Time Status Last Admin Dose Admin Levofloxacin (Levaquin / D5W) 750 mg NOW STAT IV 10/31/17 14:22 10/31/17 14:24 DC 10/31/17 14:43 750 MG Sodium Chloride 250 ml @ 999 mls/hr Q16M STAT IV 10/31/17 14:22 10/31/17 14:37 DC 10/31/17 14:43 999 MLS/HR Sodium Chloride 1,000 ml @ 100 mls/hr Q10H STAT IV 10/31/17 14:22 11/01/17 00:21 10/31/17 14:43 100 MLS/HR ECG Per My Interpretation Indication: SOB/dyspnea Rate (beats per minute): 99 Rhythm: sinus rhythm Findings: PVC (frequent), RBBB, other (Poor baseline with lots of ectopy ) Comparison ECG Date: March 12 2017 Change: no significant change ED Course 1340: Past medical records reviewed. The patient was evaluated in room B7, and a complete history and physical examination were performed. 1400: I reevaluated the patient. He appears more comfortable on oxygen. I called the patient's home number to attempt to get in touch with his next of kin but there was no response. 1416: I talked to the patient's son. The patient's son reports that the patient browning been sick for several days. He states that the patient has not been eating or drinking regularly, produces minimal urine output, and experiences frequent UTI's. The son also confirmed that the patient is allergic to penicillin. 1417: I reevaluated the patient. Catheterization only produced a few CC's of urine. 1422: Ordered Sodium Chloride 1000 ml @ 100 mls/hr IV, Sodium Chloride 250 ml @ 999 mls/hr IV, and Levofloxacin 750mg IV. 1445: I reevaluated the patient. He is more awake now and his blood pressre is over 100. Antibiotics are hanging. I will try to admit the patient. I talked about starting the patient on biPAP with the patient's son, but the son does not want this as he states that the patient could not tolerate biPAP treatment in the past. 1455: I discussed the patient's case with Dr. Carr - [facility] Hospitalist. He will evaluate the patient for further treatment and care. 1516: I re-evaluated the patient. He is still short of breath, but does not feel as bad as he did when he first arrived at the ED. He is willing to try biPAP treatment. 1538: Dr. Carr is at the patient's bedside. The patient is currently doing well on biPAP treatment. Medical Decision Differentials include, but are not limited to; Sepsis, CHF, dehydration, renal failure, cardiogenic shock, valvular heart disease, electrolyte or metabolic abnormality. This patient comes in as described above. He was placed in room B7. he looks ill upon arrival and was initially hypotensive and hypoxemic .he does wear oxygen at home. we did increase his oxygen. I ordered a VBG to ensure that he is not retaining CO2 as well although looking through his chart AND he has no history of COPD. He does have a cardiac history as well as a renal history. He apparently has not been taking his meds or drinking for a few days. His lungs do sound rhonchorous and worry about congestive heart failure on top of all this. Multiple blood testing was obtained his EKG is a very poor baseline but I do not think is likely acute ischemic. His lactic acid was found to be significantly elevated at 6. He was gently hydrated initially due to the concern for possible CHF with a 250 cc normal saline bolus and then 100 cc an hour of IV normal saline. Also ordered empiric IV antibiotics for possible sepsis with Levaquin 750 mg IV. This should give good lung and urine coverage. His son arrived who I talked at length and says that he does get frequent UTIs and has had decreased urine output. We have established 2 IVs and I talked to the son at length about CODE STATUS as well as the patient. During his last stay here he was DNR. He wishes to be DNR at this time as well and son agrees. His chest x-ray shows what appears to be congestive heart failure and I am concerned there could be a superimposed pneumonia as well. Because of the CHF he did not receive his 30 cc/kg of IV normal saline bolus as I feel that that would cause more harm than good. We did do a urinary cath and there is minimal urine. His white count is not elevated however his BUN and creatinine are significant elevated compared to baseline further supporting that he is intravascularly dry. I did talk to the son and the patient about putting on BiPAP and he has not tolerated this well before. I do think he needs to be admitted for further treatment and evaluation and I have consulted Dr. Marie to see him in the ER for these measures. In the meantime I did discuss BiPAP again and he agreed and we placed this. He seems much more comfortable with this and I think this will help him both with his symptoms and also with his hypoxemia and CHF. He will be admitted. Medication Reconcilliation Current Medication List: was personally reviewed by me Blood Pressure Screening Patient's blood pressure: Low blood pressure Consults Time Called: 1450 Consulting Physician: Dr. Lilly Riddle Hospitalist Returned Call: [phone] I discussed the patient's case with Dr. Lilly Muniz. He will evaluate the patient for further treatment and care. Impression Primary Impression: Dehydration Additional Impressions: CHF (congestive heart failure) Sepsis Renal failure Hypoxemia Critical Care Due to the patient's respiratory status, need for BiPAP and multiple IV medications, frequent reassessment and unstable vital signs, I have personally spent greater than 45 minutes of critical care time in the direct management of this patient. This includes bedside care, interpretation of diagnostic studies , and testing, discussion with consultants, patient, and family members, and other required patient management activities. This 45 minutes is in excess of all separately billable procedures. Scribe Attestation The scribe's documentation has been prepared under my direction and personally reviewed by me in its entirety. I confirm that the note above accurately reflects all work, treatment, procedures, and medical decision making performed by me. Departure Information Dispostion Being Evaluated By Hospitalist Referrals Rl Benitez M.D. (PCP) Problem Qualifiers
[2017-10-31] MEDS ORDERED: SODIUM CHLORIDE 0.9% 1000ML 250 ML IV STA (14:22)
[2017-10-31] MEDS ORDERED: SODIUM CHLORIDE 0.9% 1000ML 1,000 ML IV STA (14:22)
[2017-10-31] MEDS ORDERED: LEVAQUIN 750MG / 150ML D5W IV STA (14:22)
[2017-10-31] MEDS ORDERED: METO5TAB25 PO (14:31)
[2017-10-31] MEDS ORDERED: LPT20 PO (14:31)
[2017-10-31] MEDS ORDERED: TORS20TA2 PO (14:31)
[2017-10-31] MEDS ORDERED: POTA-639 PO (14:31)
[2017-10-31 14:38] LABS: MEAN CORPUSCULAR HEMOGLOBIN 32.4 pg (25-34); MEAN CORPUSCULAR HGB CONC 32.4 g/dl (32-36); RED CELL DISTRIBUTION WIDTH CV 16.1 % (11.5-14.5); RED CELL DISTRIBUTION WIDTH SD 59.7 fL (36.4-46.3); WHITE BLOOD COUNT 3.03 K/uL (4.8-10.8)
[2017-10-31 14:42] LABS: INR 1.2 (0.9-1.1); PTT PATIENT 34.8 SECONDS (21.0-31.0)
[2017-10-31 14:47] LABS: ALBUMIN 2.8 gm/dl (3.4-5.0); ALT/SGPT 60 U/L (12-78); AST/SGOT 111 U/L (15-37); BLOOD UREA NITROGEN 58 mg/dl (7-18); CALCIUM 8.3 mg/dl (8.5-10.1); CARBON DIOXIDE 30 mmol/L (21-32); CREATININE 3.63 mg/dl (0.60-1.40); GLUCOSE 175 mg/dl (70-99); POTASSIUM 3.2 mmol/L (3.5-5.1); SODIUM 136 mmol/L (136-145)
[2017-10-31 14:51] LABS: ALKALINE PHOSPHATASE 114 U/L (45-117); PLATELET COUNT 43 K/uL (130-400); TOTAL PROTEIN 6.4 gm/dl (6.4-8.2)
--- NOTE | 2017-10-31 15:11 | DIAGNOSTIC IMAGING REPORT ---
SINGLE VIEW CHEST CLINICAL HISTORY: Sepsis. FINDINGS: An AP, portable, upright chest radiograph is compared to study dated 03/13/2017 and correlated with chest CT dated 07/01/2015. The examination is degraded by portable technique and patient rotation. The patient is status post midline sternotomy. The heart is enlarged and there is atherosclerotic calcification of the thoracic aorta. There is pulmonary vascular congestion with evidence of interstitial edema. There are layering pleural effusions with bibasilar consolidation. No pneumothorax is seen. The skeletal structures are osteopenic. The bony thorax is grossly intact. IMPRESSION: 1. Cardiomegaly with evidence of congestive failure and interstitial edema. 2. Layering pleural effusions with bibasilar consolidation. This likely represents atelectasis. Correlate clinically for evidence of superimposed pneumonia. Electronically signed by: Oh Pink M.D. 10/31/2017 3:09 PM Dictated Date/Time: 10/31/2017 3:07 PM
[2017-10-31] MEDS ORDERED: ACETAMINOPHEN 325 MG TAB PO PRN (16:15)
[2017-10-31] MEDS ORDERED: VANCOMYCIN CONSULT ACTIVE PRN (16:30)
[2017-10-31] MEDS ORDERED: GLUCOSE 40% GEL 15 GM TUBE PO PRN (16:30)
[2017-10-31] MEDS ORDERED: GLUCAGON FOR INJ 1 MG VIAL SQ PRN (16:30)
[2017-10-31] MEDS: IPRATROPIUM BROMIDE NEB SOLN 0.02% 2.5 ML VIAL INH SCH ×2 (16:30→19:20)
[2017-10-31] MEDS ORDERED: GLUCOSE 10 TABS/TUBE PO PRN (16:30)
[2017-10-31] MEDS ORDERED: DEXTROSE 50% 50 ML SYR IV PRN (16:30)
[2017-10-31] MEDS: LEVALBUTEROL 0.63MG/3 ML NEB INH SCH ×2 (16:30→19:21)
[2017-10-31] MEDS ORDERED: IMIPENEM/CILASTATIN CONSULT ACTIVE PRN (16:45)
[2017-10-31] MEDS ORDERED: VANCOMYCIN IV 2,000 MG in SODIUM CHLORIDE 0.9% 500ML 500 ML IV ONE (17:15)
--- NOTE | 2017-10-31 17:16 | History and Physical ---
History & Physical Date & Time of Service: Oct 31, 2017 at 17:09 Chief Complaint: Illness/Shortness Of Breath Primary Care Physician: Rl Benitez M.D. History of Present Illness Source: patient, family 87-year-old male history of coronary artery disease, CHF diastolic type, aortic stenosis, diabetes type II on insulin, CKD stage III, nocturnal hypoxemia, presenting with weakness and poor oral intake. Patient was apparently at his usual baseline state of health until about a few days ago when he was started to have increasing cough with sputum production. Yesterday the patient's son noticed that the patient was weak, mostly quiet, with poor appetite, minimal urinary output. This morning when the patient's son checked on him he was still the same hence was brought to the ER. At the ER the patient arrived was noted to be hypotensive, lowest systolic BP was in the 70s. He was also hypoxic and saturating 70+% on room air. Patient was given about 300 cc of IV fluids well en route to the hospital and about 200 cc in the ER. Blood pressure improved to systolic 90s. He was also placed initially on a facemask as he was declining BiPAP. Later on the patient agreed to wear the BiPAP mask. Chest x-ray showed positive bilateral pleural effusion and possible pneumonia. He was started on Levaquin IV. On my exam, the patient was laying in bed, with BiPAP mask on. He appeared comfortable and not in respiratory distress. Patient is oriented 2, and was answering questions appropriately but did appear weak. He states he feels somewhat improved compared to admission. Denies active chest pain, shortness of breath, nausea, dizziness. He admits to having lower abdominal pain but cannot describe it. 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 (20) H/O gastric ulcer (21) Hip pain (22) Methicillin resistant Staphylococcus aureus infection (23) NII (obstructive sleep apnea) (24) Respiratory failure (25) Shortness of breath (26) Troponin I above reference range Surgical Problems: (1) History of cholecystectomy (2) History of total hip replacement (3) S/P CABG x 3 (4) S/P cataract surgery Family History Omitted secondary to age Social History Smoking Status: Former Smoker Smokeless Tobacco Use: No Alcohol Use: none Drug Use: none Marital Status: Housing status: lives alone Immunizations History of Influenza Vaccine: Yes Influenza Vaccine Date: Jun 04, 2016 History of Tetanus Vaccine?: Yes Tetanus Immunization Date: Feb 10, 2011 History of Pneumococcal: Yes Pneumococcal Date: Mar 13, 2015 Allergies Coded Allergies: Penicillins (Verified Allergy, Intermediate, hives, 10/31/17) Home Medications Scheduled Allopurinol (Allopurinol), 300 MG PO QAM Aspirin Enteric Coated (Ecotrin Or Generic), 81 MG PO QAM Atorvastatin (Lipitor), 20 MG PO DAILY Calcitriol (Rocaltrol Cap), 0.25 MCG PO 2XWK Carvedilol (Coreg), 1 TAB PO BID Cholecalciferol (Vitamin D 1000 Unit), 2,000 INTER.UNIT PO QAM Insulin Aspart 70/30 (Novolog Mix 70/30), Unknown Dose SC BID Iron-Vitamin C (Vitron-C), 1 TAB PO BID Isosorbide Mononitrate Ext Rel (Imdur Ext Rel), 30 MG PO QAM Levothyroxine Sodium (Levothyroxine Sodium), 100 MCG PO QAM Metolazone (Zaroxolyn), 5 MG PO DAILY Multiple Vitamin (Multivitamin), 1 TAB PO QAM Clint-3 Fatty Acids (Fish Oil), 1 CAP PO DAILY Omeprazole (Prilosec), 40 MG PO DAILY Potassium Ext Rel (Klor-Con), 60 MEQ PO UD Torsemide (Demadex), 40 MG PO BID Torsemide (Demadex), 40 MG PO DAILY Scheduled PRN Hydrocodone/Acetaminophen 5MG/325MG ([place]ark 5MG/325MG), 1 TABLET PO 5XD PRN for Pain Miscellaneous Medications Sodium Chloride (Inhalant) (Nasal Mist) Review of Systems Constitutional- no fever; no weight loss Eyes- no acute visual changes ENT- no sinus drainage; no pharyngitis Pulmonary- (+) as noted above Cardiac- no chest pain, no palpitations, no orthopnea, no dependent edema GI- no nausea, no vomiting, no diarrhea, no melena, no hematochezia - no dysuria, no hematuria Musculoskeletal- no arthralgias, no myalgias Derm- no rashes, no new skin lesions, no changing skin lesions Hematologic- no unusual bruising, no unusual bleeding Lymphatics- no adenopathy Endocrine- no polyuria or polydipsia; no heat or cold intolerance Neuro- no headaches, no focal neurologic symptoms Psych- no anxiety, no depression Physical Exam Vital Signs Date Time Temp Pulse Resp B/P (MAP) Pulse Ox O2 Delivery O2 Flow Rate FiO2 10/31/17 16:02 92 BiPAP 6.0 10/31/17 15:31 80 95 95 10/31/17 15:01 96/42 Oxymask 6.0 10/31/17 15:00 73 29 92 Oxymask 6.0 10/31/17 14:34 76 Room Air 10/31/17 14:31 107/53 Oxymask 6.0 10/31/17 14:30 94 30 91 Oxymask 6.0 10/31/17 14:14 100/48 10/31/17 14:00 73 28 89 10/31/17 13:44 93/52 10/31/17 13:43 97 10/31/17 13:41 76/47 10/31/17 13:31 91 Oxymask 10/31/17 13:30 78 Room Air 10/31/17 13:30 37.2 98 18 93/52 78 Room Air General Appearance: WD/WN, no apparent distress Head: normocephalic, atraumatic Eyes: normal inspection, PERRL, sclerae normal ENT: normal ENT inspection, pharynx normal, + pertinent finding (hard of hearing) Neck: supple, no adenopathy, thyroid normal, trachea midline, + JVD Respiratory/Chest: no respiratory distress, no accessory muscle use, + pertinent finding (rales - bilateral mid-base) Cardiovascular: regular rate, rhythm, + systolic murmur (gr 4/6 holosystolic) Abdomen/GI: normal bowel sounds, + tenderness (mild- lower quadrants) Genitourinary - Male: + pertinent finding (panda in place) Back: normal inspection, no CVA tenderness Extremities/Musculoskelatal: + pertinent finding (grade 2 bilateral lower leg edema) Neurologic/Psych: shovel oiler II-XII nml as tested, no motor/sensory deficits, alert, normal mood/affect, normal reflexes, oriented x 3 Skin: normal color, warm/dry, no rash Lymphatic: no adenopathy Diagnostics Laboratory Results Results Past 24 Hours Test 10/31/17 14:07 10/31/17 14:08 10/31/17 14:13 10/31/17 16:07 Range/Units Bedside Lactic Acid Venous 6.81 0.90-1.70 mmol/L White Blood Count 3.03 4.8-10.8 K/uL Red Blood Count 3.70 4.7-6.1 M/uL Hemoglobin 12.0 14.0-18.0 g/dL Hematocrit 37.0 42-52 % Mean Corpuscular Volume 100.0 80-100 fL Mean Corpuscular Hemoglobin 32.4 25-34 pg Mean Corpuscular Hemoglobin Concent 32.4 32-36 g/dl Platelet Count 43 130-400 K/uL RDW Standard Deviation 59.7 36.4-46.3 fL RDW Coefficient of Variation 16.1 11.5-14.5 % Neutrophils % (Manual) 79.6 % Lymphocytes % (Manual) 7.1 % Monocytes % (Manual) 4.4 % Eosinophils % (Manual) 0.9 % Basophils % (Manual) 0.9 0-2 % Metamyelocytes % 6.2 % Myelocytes % 0.9 % Neutrophils # (Manual) 2.41 1.4-6.5 K/uL Total Absolute Neutrophils 2.41 1.4-6.5 K/uL Lymphocytes # (Manual) 0.22 1.2-3.4 K/uL Total Absolute Lymphocytes 0.22 1.2-3.4 K/uL Monocytes # (Manual) 0.13 0.11-0.59 K/uL Eosinophils # (Manual) 0.03 0-0.5 K/uL Basophils # (Manual) 0.03 0-0.2 K/uL Metamyelocytes # 0.19 0-0 K/uL Myelocytes # 0.03 0-0 K/uL Toxic Vacuolation OCCASIONAL Dohle Bodies 1+ Platelet Estimate SIGNIFIC DECREASED Giant Platelets 2+ Ovalocytes 2+ Prothrombin Time 12.4 9.0-12.0 SECONDS Prothromb Time International Ratio 1.2 0.9-1.1 Activated Partial Thromboplast Time 34.8 21.0-31.0 SECONDS Partial Thromboplastin Ratio 1.3 Venous Blood pH 7.28 7.36-7.41 Venous Blood Partial Pressure CO2 58 38.0-50.0 mmHg Venous Blood Partial Pressure O2 33 mmHg Venous Blood HCO3 26 mmol/L Venous Blood Oxygen Saturation < 60.0 % Venous Blood Base Excess -1.2 mEq/L Sodium Level 136 136-145 mmol/L Potassium Level 3.2 3.5-5.1 mmol/L Chloride Level 96 98-107 mmol/L Carbon Dioxide Level 30 21-32 mmol/L Anion Gap 10.0 3-11 mmol/L Blood Urea Nitrogen 58 7-18 mg/dl Creatinine 3.63 0.60-1.40 mg/dl Est Creatinine Clear Calc Drug Dose 16.4 ml/min Estimated GFR () 16.5 Estimated GFR (Non- 14.3 BUN/Creatinine Ratio 16.0 10-20 Random Glucose 175 70-99 mg/dl Calcium Level 8.3 8.5-10.1 mg/dl Total Bilirubin 1.2 0.2-1 mg/dl Aspartate Amino Transf (AST/SGOT) 111 15-37 U/L Alanine Aminotransferase (ALT/SGPT) 60 12-78 U/L Alkaline Phosphatase 114 45-117 U/L Pro-B-Type Natriuretic Peptide > 69139 0-1800 pg/ml Total Protein 6.4 6.4-8.2 gm/dl Albumin 2.8 3.4-5.0 gm/dl Globulin 3.6 2.5-4.0 gm/dl Albumin/Globulin Ratio 0.8 0.9-2 Bedside Troponin I 0.460 0-0.045 ng/ml Test 10/31/17 17:00 Range/Units Microbiology Results 10/31/17 Blood Culture, Received Pending 10/31/17 Blood Culture, Received Pending Diagnostic Radiology CXR: 1. Cardiomegaly with evidence of congestive failure and interstitial edema. 2. Layering pleural effusions with bibasilar consolidation. This likely represents atelectasis. Correlate clinically for evidence of superimposed pneumonia. EKG HR 99, sinus rhythm with PVCs Impression Assessment and Plan 87-year-old male history of coronary artery disease, CHF diastolic type, aortic stenosis, diabetes type II on insulin, CKD stage III, nocturnal hypoxemia, presenting with weakness and poor oral intake. ACUTE HYPOXIC RESPIRATORY FAILURE SECONDARY TO: ACUTE AND CHRONIC CONGESTIVE HEART FAILURE SYSTOLIC AND DIASTOLIC TYPE Last echo February 2017: EF 40%, with moderate to severe aortic stenosis Respiratory status improved with BiPAP, saturating more than 90%, not in distress patient's blood pressure is marginal, crea elevated from baseline of 2.1 to 3.6 Will hold off on diuresis for this evening and wait for creatinine to improve hopefully by tomorrow, prior to resuming diuretics (Unless patient develops respiratory distress overnight) Will order an echocardiogram Will consult cardiology service POSSIBLE COMMUNITY-ACQUIRED PNEUMONIA Blood cultures, sputum cultures ordered Empiric vancomycin and imipenem for now Nebulizers every 6 hours We will consult pulmonary service HYPOTENSION POSSIBLY SECONDARY TO: INTRAVASCULAR VOLUME DEPLETION Patient has received about 500 cc of fluids at the ER Blood pressure systolic in the 90s Hold off on further IV fluids due to CHF exacerbation and aortic stenosis Patient has declined initiation of vasopressors if needed POSSIBLE SEPSIS Possible focus include: Rule out pneumonia, intra-abdominal infection, UTI Cultures sputum, urine, blood ordered Empiric vancomycin plus imipenem Lactic acid, repeat at 5 PM ordered (IV fluids cannot be administered as patient is having CHF exacerbation and is hypoxic) POSSIBLE CARDIOGENIC ETIOLOGY Echocardiogram ordered ACUTE RENAL FAILURE ON CKD STAGE III Possible prerenal etiology due to poor oral intake and concomitant diuretic use , possibly secondary to sepsis, possibly secondary to hypotension, possible cardiorenal syndrome Given total of 500 cc IV fluids at this time Hold off on IV fluids for now, in light of CHF exacerbation Nephrology has been consulted Patient declines hemodialysis if indicated RESPIRATORY ACIDOSIS PH 7.28, PCO2 50s Repeat ABG Continue BiPAP MILD TROPONIN ELEVATION Likely from demand ischemia from hypoxia, hypotension, sepsis repeat at 8 PM and 2 AM HYPOKALEMIA Replace with p.o. potassium We will be cautious as patient is having acute renal failure PANCYTOPENIA Patient has lower levels of WBC and platelets compared to baseline baseline Could be secondary to bone marrow suppression from infection ELEVATED BILIRUBIN LEVEL Follow liver profile DIABETES TYPE 2 Hold usual insulin [address] him on insulin sliding scale for now DVT prophylaxis Heparin Lovenox contraindicated secondary to thrombocytopenia SCDs contraindicated because of bilateral leg edema CODE STATUS DNR according to the patient confirmed by patient's Also declines vasopressors if indicated DISPOSITION Pending Management of multiple medical conditions and progress as noted above Usually lives alone, son lives nearby and checks on patient daily Advanced Directives Existing Living Will: Yes Existing Power of Carbon Cleaner: Yes Resuscitation Status VTE Prophylaxis Will order VTE Prophylaxis: No Reason for no VTE drug order: Contraindicated Reason no Mechanical VTE Order: Contraindicated
[2017-10-31] MEDS ORDERED: POTASSIUM CHLORIDE 20 MEQ/15 ML UDC PO ONE (18:00)
--- NOTE | 2017-10-31 19:10 | Pulmonary Consultation ---
History General Date of Service: Oct 31, 2017. Stated Complaint: Respiratory Failure HPI Dear : Thank you for your kind referral of Mr. Harding to pulmonary service. This is 87 -year-old gentleman with a history of congestive heart failure, ejection fraction is 40% on an echo done 2017, history of severe aortic stenosis, has been mostly around the house where he lives by himself, has not been feeling well for the past few days, his son checked on him today and found him to be lethargic and having difficulty breathing. EMS were called and the patient was brought to the hospital and initial impression was pneumonia versus CHF. The patient sure enough responded to the BiPAP however he was having difficulty even staying awake without dozing. The patient chest x-ray showed bilateral pulmonary edema as well as pleural effusion. The patient could not give me any information at this time. He does have significant leg swelling with 4+ edema in the periphery. In speaking to his son, he also was a poor historian and he knows that his father does not want any aggressive measures. According to him, he was seen by his surgical elastic knitter hand frame Dr. Gudino and he was told that his aortic stenosis is severe enough but he would not stand for the surgery as he would not survive it. The patient did not have any cough or chest pain, does have significant orthopnea, the patient has significant dyspnea on exertion, he lives alone and his son is close by. Previous workup including echocardiogram showed aortic stenosis severe, EF of 40 %, trace MR and TR, significant congestive heart failure. 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 The patient was treated in the emergency room and admitted to the regular floor for further management. I have performed ultrasound at the bedside evaluation for bilateral pleural effusion in which she does have mild pleural effusion but does have significantly consolidated bilateral lower lobes and middle lobe on the right consistent with pulmonary edema. Cannot rule out the possibility of consolidation. Liver congestion and engorged IVC was noted also. Historian: other (Records.) Review of Systems Review of system was very limited as the patient was in respiratory distress on the BiPAP and dozing. The son was poor informant. The only symptom that the patient was able to answer was shortness of breath. The review of system was unobtainable otherwise. Past Medical History Past Medical History: CHF with EF of 40%, severe aortic stenosis, previous acute PR, chronic kidney insufficiency, abnormality noted also on the blood test on this admission. Family History Omitted secondary to age Social History Hx Tobacco Use In Past Year?: No Smoking Status: Former Smoker Marital status: Housing status: lives alone Immunizations History of Influenza Vaccine: Yes Influenza Vaccine Date: Jun 04, 2016 History of Tetanus Vaccine?: Yes Tetanus Immunization Date: Feb 10, 2011 History of Pneumococcal: Yes Pneumococcal Date: Mar 13, 2015 History of MDRO History of MDRO: Yes Type of MDRO: MRSA Allergies Coded Allergies: Penicillins (Verified Allergy, Intermediate, hives, 10/31/17) Current Medications Reported Home Medications Medications Dose Route/Sig Max Daily Dose Days Date Category Dose Instructions Zaroxolyn (Metolazone) 5 Mg Tab 5 Mg PO DAILY 10/31/17 Reported TAKE 30-60 MIN IN THE AM WITH TORSEMIDE ON TWO NONCONSECTIVE DAYS Klor-Con (Potassium Chloride) 20 Meq Tabcr 60 Meq PO UD 10/31/17 Reported TAKE WITH METOLAZONE Lipitor (Atorvastatin Calcium) 20 Mg Tab 20 Mg PO DAILY 10/31/17 Reported Demadex (Torsemide) 20 Mg Tab 40 Mg PO DAILY 10/31/17 Reported [place] 5MG/325MG (Acetaminophen/Hydrocodone Bitart) Tab 1 Tablet PO 5XD PRN 3 03/13/17 Rx PRN PAIN Coreg (Carvedilol) 6.25 Mg Tab 1 Tab PO BID 30 03/13/17 Rx Vitron-C (Iron-Vitamin C) 1 Tab Tab 1 Tab PO BID 03/10/17 Reported Nasal Mist (Sodium Chloride (Inhalant)) 0.9 % Aer 03/10/17 Reported Rocaltrol Cap (Calcitriol) 0.25 Mcg Cap 0.25 Mcg PO 2XWK 03/10/17 Reported TAKES MON,WED,FRI Prilosec (Omeprazole) 40 Mg Cap 40 Mg PO DAILY 03/10/17 Reported Fish Oil (Waterflow-3 Fatty Acids) 1 Cap Cap 1 Cap PO DAILY 03/10/17 Reported Novolog Mix 70/30 (Insulin Aspart Prota 70%/Aspart 30%) Susp Unknown Dose SC BID 09/09/15 Reported Demadex (Torsemide) 20 Mg Tab 40 Mg PO BID 09/09/15 Reported TAKES TWO TABS WITH WEIGHT OVER 210 Levothyroxine Sodium 100 Mcg Tab 100 Mcg PO QAM 08/21/15 Reported Allopurinol 300 Mg Tab 300 Mg PO QAM 07/01/15 Reported Imdur Ext Rel (Isosorbide Mononitrate) 30 Mg Tabcr 30 Mg PO QAM 01/20/12 Reported Multivitamin (Multiple Vitamin) 1 Tab Tab 1 Tab PO QAM 01/20/12 Reported Vitamin D 1000 Unit (Cholecalciferol) 1,000 Unit Cap 2,000 Inter.unit PO QAM 01/20/12 Reported Ecotrin Or Generic (Aspirin) 81 Mg Tab 81 Mg PO QAM 01/20/12 Reported Physical Physical Exam Vital Signs: Date Time Temp Pulse Resp B/P (MAP) Pulse Ox O2 Delivery O2 Flow Rate FiO2 10/31/17 16:30 92 10/31/17 16:30 78 19 96/42 92 BiPAP 50 10/31/17 16:02 92 BiPAP 6.0 10/31/17 15:31 80 95 95 10/31/17 15:01 96/42 Oxymask 6.0 10/31/17 15:00 73 29 92 Oxymask 6.0 10/31/17 14:34 76 Room Air 10/31/17 14:31 107/53 Oxymask 6.0 10/31/17 14:30 94 30 91 Oxymask 6.0 10/31/17 14:14 100/48 10/31/17 14:00 73 28 89 10/31/17 13:44 93/52 10/31/17 13:43 97 10/31/17 13:41 76/47 10/31/17 13:31 91 Oxymask 10/31/17 13:30 78 Room Air 10/31/17 13:30 37.2 98 18 93/52 78 Room Air General Appearance: moderate distress, severe distress Eyes: EOMI ENT: NORMAL THROAT EXAM Neck: TRACHEA MIDLINE Respiratory: rales Cardiovasular: NO M/G/R, NO MURMUR, systolic murmur Abdomen: NON TENDER, NO GUARDING Upper Extremities: edema (4+) Lower Extremities: edema (4+) Neuro: ALERT, other (Disoriented and somnolent) Diagnostics Labs Results Past 24 Hours Test 10/31/17 14:07 10/31/17 14:08 10/31/17 14:13 10/31/17 18:51 Range/Units Bedside Lactic Acid Venous 6.81 0.90-1.70 mmol/L White Blood Count 3.03 4.8-10.8 K/uL Red Blood Count 3.70 4.7-6.1 M/uL Hemoglobin 12.0 14.0-18.0 g/dL Hematocrit 37.0 42-52 % Mean Corpuscular Volume 100.0 80-100 fL Mean Corpuscular Hemoglobin 32.4 25-34 pg Mean Corpuscular Hemoglobin Concent 32.4 32-36 g/dl Platelet Count 43 130-400 K/uL RDW Standard Deviation 59.7 36.4-46.3 fL RDW Coefficient of Variation 16.1 11.5-14.5 % Neutrophils % (Manual) 79.6 % Lymphocytes % (Manual) 7.1 % Monocytes % (Manual) 4.4 % Eosinophils % (Manual) 0.9 % Basophils % (Manual) 0.9 0-2 % Metamyelocytes % 6.2 % Myelocytes % 0.9 % Neutrophils # (Manual) 2.41 1.4-6.5 K/uL Total Absolute Neutrophils 2.41 1.4-6.5 K/uL Lymphocytes # (Manual) 0.22 1.2-3.4 K/uL Total Absolute Lymphocytes 0.22 1.2-3.4 K/uL Monocytes # (Manual) 0.13 0.11-0.59 K/uL Eosinophils # (Manual) 0.03 0-0.5 K/uL Basophils # (Manual) 0.03 0-0.2 K/uL Metamyelocytes # 0.19 0-0 K/uL Myelocytes # 0.03 0-0 K/uL Toxic Vacuolation OCCASIONAL Dohle Bodies 1+ Platelet Estimate SIGNIFIC DECREASED Giant Platelets 2+ Ovalocytes 2+ Prothrombin Time 12.4 9.0-12.0 SECONDS Prothromb Time International Ratio 1.2 0.9-1.1 Activated Partial Thromboplast Time 34.8 21.0-31.0 SECONDS Partial Thromboplastin Ratio 1.3 Venous Blood pH 7.28 7.36-7.41 Venous Blood Partial Pressure CO2 58 38.0-50.0 mmHg Venous Blood Partial Pressure O2 33 mmHg Venous Blood HCO3 26 mmol/L Venous Blood Oxygen Saturation < 60.0 % Venous Blood Base Excess -1.2 mEq/L Sodium Level 136 136-145 mmol/L Potassium Level 3.2 3.5-5.1 mmol/L Chloride Level 96 98-107 mmol/L Carbon Dioxide Level 30 21-32 mmol/L Anion Gap 10.0 3-11 mmol/L Blood Urea Nitrogen 58 7-18 mg/dl Creatinine 3.63 0.60-1.40 mg/dl Est Creatinine Clear Calc Drug Dose 16.4 ml/min Estimated GFR () 16.5 Estimated GFR (Non- 14.3 BUN/Creatinine Ratio 16.0 10-20 Random Glucose 175 70-99 mg/dl Calcium Level 8.3 8.5-10.1 mg/dl Total Bilirubin 1.2 0.2-1 mg/dl Aspartate Amino Transf (AST/SGOT) 111 15-37 U/L Alanine Aminotransferase (ALT/SGPT) 60 12-78 U/L Alkaline Phosphatase 114 45-117 U/L Pro-B-Type Natriuretic Peptide > 31992 0-1800 pg/ml Total Protein 6.4 6.4-8.2 gm/dl Albumin 2.8 3.4-5.0 gm/dl Globulin 3.6 2.5-4.0 gm/dl Albumin/Globulin Ratio 0.8 0.9-2 Bedside Troponin I 0.460 0-0.045 ng/ml Microbiology Results 10/31/17 Blood Culture, Received Pending 10/31/17 Blood Culture, Received Pending Diagnostic Radiology Chest x-ray with bilateral pleural effusion bilateral consolidation consistent with pulmonary edema and cardiomegaly. Ultrasound of the bedside showed mild pleural effusion however is complete pulmonary artery distribution engorgement as well as engorged IVC. Labs are consistent with significant metamyelocytes on the blood smear concerning to me for myelodysplastic syndrome. Impression Assessment and Plan 1. CHF exacerbation. BNP over than 35,000, bilateral pleural effusion with engorged pulmonary arteries. Chest x-ray compatible CHF as well. 2. Possible myelodysplastic syndrome, not sure if it is an exacerbation as well. 3. Chronic kidney disease with creatinine of 3.49 mostly consistent with stage V. 4. Small bilateral pleural effusion. 5. I do not see evidence of infectious process. Plan: 1. Start the patient on Lasix drip. 2. In 24 hours if the patient does not show any signs of infectious process, antibiotics can be stopped. 3. Agree with Dr. Snow to evaluate for blood smear as his auto differential is not normal. 4. Replete his potassium. 5. Daily labs. 6. Patient is DNR and DNI. 7. Discussed in details with the patient and his son. 8. Consider palliative care. 9. Consider cardiology consult as well. Thank you for the kind referral, will follow.
[2017-10-31] MEDS ORDERED: FUROSEMIDE INJ 100 MG in DEXTROSE 5% 100ML 90 ML IV SCH (19:30)
[2017-10-31] MEDS: POTASSIUM CHLR 10 MEQ / WTR 100 ML IV SCH ×2 (19:43→21:13)
--- NOTE | 2017-10-31 19:48 | Pharmacy Progress Note ---
Pharmacy Abx Dose Short Note Date of Service Oct 31, 2017. Assessment & Plan Assessment 87 year old male ordered Vancomycin and Primaxin for treatment of possible pneumonia/intra-abdominal infection? Pharmacy consults ordered by Dr. Hoff Day # 1 of antimicrobial therapy. * Significant PMH: DM, Stage III CKD * Blood cultures ordered x 2 Plan Vancomycin * Loading dose: 2000mg (~19mg/kg) IV x 1 * Crcl < 20ml/min, will dose per level at this time. * Goal trough level : 15 to 20 mcg/mL * Random level ordered for: 11/01/17 @0444 Primaxin * Dose adjusted for crcl 15-29 ml/min * 500mg IV q 12 hours Pharmacy will continue to follow and will adjust dose/frequency as necessary. Thank you.
[2017-10-31] MEDS ORDERED: IMIPENEM/CILASTATIN IV 500 MG in D5W 100ML IV SCH (20:00)
[2017-10-31] MEDS ORDERED: LEVALBUTEROL/IPRATROPIUM NEB INH STA (20:27)
[2017-10-31] MEDS ORDERED: LEVALBUTEROL/IPRATROPIUM NEB INH PRN (20:30)
[2017-10-31] MEDS ORDERED: LEVALBUTEROL 1.25MG/0.5ML NEB INH STA (20:31)
[2017-10-31] MEDS ORDERED: IPRATROPIUM BROMIDE NEB SOLN 0.02% 2.5 ML VIAL INH STA (20:31)
[2017-10-31] MEDS ORDERED: METHYLPREDNISOLONE IV 20 MG in SYRINGE 0 ML IV ONE (20:40)
[2017-10-31] MEDS ORDERED: IPRATROPIUM BROMIDE NEB SOLN 0.02% 2.5 ML VIAL INH PRN (20:45)
[2017-10-31] MEDS ORDERED: LEVALBUTEROL 1.25MG/0.5ML NEB INH PRN (20:45)
[2017-10-31] MEDS ORDERED: IPRATROPIUM BROMIDE NEB SOLN 0.02% 2.5 ML VIAL INH SCH (21:00)
[2017-10-31] MEDS ORDERED: INSULIN ASPART 100 UNITS/ML 3 ML PEN SC SCH (21:00)
[2017-10-31] MEDS ORDERED: LEVALBUTEROL 1.25MG/0.5ML NEB INH SCH (21:00)
[2017-10-31] MEDS ORDERED: INSULIN GLARGINE SOLOSTAR 100 UNITS/ML 3 ML PEN SC ONE (21:00)
[2017-10-31] MEDS ORDERED: HYDROmorphone INJ 0.5 MG/0.5 ML SYR ONE (21:10)
[2017-10-31] MEDS ORDERED: ALBUMIN HUMAN 25% 12.5 GM/50 ML VIAL IV ONE (21:15)
[2017-10-31] MEDS ORDERED: HYDROmorphone INJ 0.5 MG/0.5 ML SYR IV PRN (21:15)
[2017-10-31] MEDS ORDERED: MAGNESIUM SULFATE 1GM / D5W 1 GM in PREMIXED IN D5W 100 ML IV ONE (21:30)
[2017-10-31] MEDS ORDERED: POTASSIUM CHLR 10 MEQ / WTR 10 MEQ in PREMIXED WATER 100 ML IV SCH (21:30)
--- NOTE | 2017-10-31 22:07 | Progress Note ---
Internal Med Progress Note Date of Service: Oct 31, 2017. Provider Documentation: SUBJECTIVE: called to eval px for probable OBJECTIVE: Vital Signs-as noted below Exam: General-unresponsive to pain, no spont respiration HEENT- dilated pupils not reactive to light Heart-no heartbeat Lungs- no spont respiration Patient pronounced at 1015PM. Dr. Hoff to accomplish discharge summary. Vital Signs: Date Time Temp Pulse Resp B/P (MAP) Pulse Ox O2 Delivery O2 Flow Rate FiO2 10/31/17 20:50 74 91 45 10/31/17 20:47 84 36 92 BiPAP/CPAP 60 10/31/17 20:00 94 BiPAP 60 10/31/17 19:28 78 94 60 10/31/17 19:21 78 33 94 BiPAP/CPAP 60 10/31/17 19:17 36.8 99 24 106/72 (83) 88 BiPAP 50 10/31/17 17:40 37.2 73 28 122/70 (87) 88 BiPAP 50 10/31/17 16:30 92 10/31/17 16:30 78 19 96/42 92 BiPAP 50 10/31/17 16:02 92 BiPAP 6.0 10/31/17 15:31 80 95 95 10/31/17 15:01 96/42 Oxymask 6.0 10/31/17 15:00 73 29 92 Oxymask 6.0 10/31/17 14:34 76 Room Air 10/31/17 14:31 107/53 Oxymask 6.0 10/31/17 14:30 94 30 91 Oxymask 6.0 10/31/17 14:14 100/48 10/31/17 14:00 73 28 89 10/31/17 13:44 93/52 10/31/17 13:43 97 10/31/17 13:41 76/47 10/31/17 13:31 91 Oxymask 10/31/17 13:30 78 Room Air 10/31/17 13:30 37.2 98 18 93/52 78 Room Air Lab Results: Results Past 24 Hours Test 10/31/17 14:03 10/31/17 14:07 10/31/17 14:08 10/31/17 14:13 Range/Units Bedside Glucose 173 70-99 mg/dl Bedside Lactic Acid Venous 6.81 0.90-1.70 mmol/L White Blood Count 3.03 4.8-10.8 K/uL Red Blood Count 3.70 4.7-6.1 M/uL Hemoglobin 12.0 14.0-18.0 g/dL Hematocrit 37.0 42-52 % Mean Corpuscular Volume 100.0 80-100 fL Mean Corpuscular Hemoglobin 32.4 25-34 pg Mean Corpuscular Hemoglobin Concent 32.4 32-36 g/dl Platelet Count 43 130-400 K/uL RDW Standard Deviation 59.7 36.4-46.3 fL RDW Coefficient of Variation 16.1 11.5-14.5 % Neutrophils % (Manual) 79.6 % Lymphocytes % (Manual) 7.1 % Monocytes % (Manual) 4.4 % Eosinophils % (Manual) 0.9 % Basophils % (Manual) 0.9 0-2 % Metamyelocytes % 6.2 % Myelocytes % 0.9 % Neutrophils # (Manual) 2.41 1.4-6.5 K/uL Total Absolute Neutrophils 2.41 1.4-6.5 K/uL Lymphocytes # (Manual) 0.22 1.2-3.4 K/uL Total Absolute Lymphocytes 0.22 1.2-3.4 K/uL Monocytes # (Manual) 0.13 0.11-0.59 K/uL Eosinophils # (Manual) 0.03 0-0.5 K/uL Basophils # (Manual) 0.03 0-0.2 K/uL Metamyelocytes # 0.19 0-0 K/uL Myelocytes # 0.03 0-0 K/uL Toxic Vacuolation OCCASIONAL Dohle Bodies 1+ Platelet Estimate SIGNIFIC DECREASED Giant Platelets 2+ Ovalocytes 2+ Prothrombin Time 12.4 9.0-12.0 SECONDS Prothromb Time International Ratio 1.2 0.9-1.1 Activated Partial Thromboplast Time 34.8 21.0-31.0 SECONDS Partial Thromboplastin Ratio 1.3 Venous Blood pH 7.28 7.36-7.41 Venous Blood Partial Pressure CO2 58 38.0-50.0 mmHg Venous Blood Partial Pressure O2 33 mmHg Venous Blood HCO3 26 mmol/L Venous Blood Oxygen Saturation < 60.0 % Venous Blood Base Excess -1.2 mEq/L Sodium Level 136 136-145 mmol/L Potassium Level 3.2 3.5-5.1 mmol/L Chloride Level 96 98-107 mmol/L Carbon Dioxide Level 30 21-32 mmol/L Anion Gap 10.0 3-11 mmol/L Blood Urea Nitrogen 58 7-18 mg/dl Creatinine 3.63 0.60-1.40 mg/dl Est Creatinine Clear Calc Drug Dose 16.4 ml/min Estimated GFR () 16.5 Estimated GFR (Non- 14.3 BUN/Creatinine Ratio 16.0 10-20 Random Glucose 175 70-99 mg/dl Calcium Level 8.3 8.5-10.1 mg/dl Total Bilirubin 1.2 0.2-1 mg/dl Aspartate Amino Transf (AST/SGOT) 111 15-37 U/L Alanine Aminotransferase (ALT/SGPT) 60 12-78 U/L Alkaline Phosphatase 114 45-117 U/L Pro-B-Type Natriuretic Peptide > 03100 0-1800 pg/ml Total Protein 6.4 6.4-8.2 gm/dl Albumin 2.8 3.4-5.0 gm/dl Globulin 3.6 2.5-4.0 gm/dl Albumin/Globulin Ratio 0.8 0.9-2 Bedside Troponin I 0.460 0-0.045 ng/ml Test 10/31/17 14:18 10/31/17 18:51 10/31/17 19:45 10/31/17 19:47 Range/Units Procalcitonin 51.53 0-0.5 ng/ml Arterial Blood pH 7.32 7.35-7.45 Arterial Blood Partial Pressure CO2 48 35-46 mmHg Arterial Blood Partial Pressure O2 114 80-95 mm/Hg Arterial Blood HCO3 24 19-24 mmol/L Arterial Blood Oxygen Saturation 98.0 90-95 % Arterial Blood Base Excess -2.1 -9-1.8 mEq/L Arterial Blood Gas Delivery 60% BIPAP Gas[place] Test POS POS Lactic Acid Level 5.3 0.4-2.0 mmol/L Urine Color DK YELLOW Urine Appearance TURBID CLEAR Urine pH 5.0 4.5-7.5 Urine Specific [place] 1.028 1.000-1.030 Urine Protein 2+ NEG Urine Glucose (UA) TRACE NEG Urine Ketones NEG NEG Urine Occult Blood 2+ NEG Urine Nitrite POS NEG Urine Bilirubin NEG NEG Urine Urobilinogen NEG NEG Urine Leukocyte Esterase SMALL NEG Urine WBC (Auto) 10-30 0-5 /hpf Urine RBC (Auto) 5-10 0-4 /hpf Urine Hyaline Casts (Auto) 0 0-5 /lpf Urine Epithelial Cells (Auto) >30 0-5 /lpf Urine Bacteria (Auto) NEG NEG Urine Renal Epithelial Cells 0-5 /lpf Urine Pathogenic Casts 0 /lpf Urine Yeast (Auto) PRESENT NONE PRSENT Magnesium Level 1.6 1.8-2.4 mg/dl Troponin I 1.090 0-0.045 ng/ml Test 10/31/17 21:00 Range/Units Bedside Glucose 128 70-99 mg/dl Microbiology Results 10/31/17 Blood Culture, Received Pending 10/31/17 Blood Culture - Preliminary, Resulted Gram Positive Cocci 10/31/17 MRSA DNA Surveillance Screen - Final, Complete Specimen Negative for MRSA by DNA Probe 10/31/17 Urine Culture, Received Pending
[2017-11-01] MEDS ORDERED: LEVALBUTEROL/IPRATROPIUM NEB INH SCH (03:00)
[2017-11-01] MEDS ORDERED: INSULIN GLARGINE SOLOSTAR 100 UNITS/ML 3 ML PEN SC SCH (09:00)
[2017-11-01] MEDS ORDERED: ALLOPURINOL 100 MG TAB PO SCH (09:00)
--- NOTE | 2017-11-01 16:38 | Discharge Summary ---
Discharge Summary Date of Service Nov 01, 2017. 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 Consultations: PULMONARY DR. HDZ Admission Information HPI (per Admitting provider): 87-year-old male history of coronary artery disease, CHF diastolic type, aortic stenosis, diabetes type II on insulin, CKD stage III, nocturnal hypoxemia, presenting with weakness and poor oral intake. Patient was apparently at his usual baseline state of health until about a few days ago when he was started to have increasing cough with sputum production. Yesterday the patient's son noticed that the patient was weak, mostly quiet, with poor appetite, minimal urinary output. This morning when the patient's son checked on him he was still the same hence was brought to the ER. At the ER the patient arrived was noted to be hypotensive, lowest systolic BP was in the 70s. He was also hypoxic and saturating 70+% on room air. Patient was given about 300 cc of IV fluids well en route to the hospital and about 200 cc in the ER. Blood pressure improved to systolic 90s. He was also placed initially on a facemask as he was declining BiPAP. Later on the patient agreed to wear the BiPAP mask. Chest x-ray showed positive bilateral pleural effusion and possible pneumonia. He was started on Levaquin IV. On my exam, the patient was laying in bed, with BiPAP mask on. He appeared comfortable and not in respiratory distress. Patient is oriented 2, and was answering questions appropriately but did appear weak. He states he feels somewhat improved compared to admission. Denies active chest pain, shortness of breath, nausea, dizziness. He admits to having lower abdominal pain but cannot describe it. No other symptoms noted Physical Exam (per Admitting): General Appearance: WD/WN, no apparent distress Head: normocephalic, atraumatic Eyes: normal inspection, PERRL, sclerae normal ENT: normal ENT inspection, pharynx normal, + pertinent finding (hard of hearing) Neck: supple, no adenopathy, thyroid normal, trachea midline, + JVD Respiratory/Chest: no respiratory distress, no accessory muscle use, + pertinent finding (rales - bilateral mid-base) Cardiovascular: regular rate, rhythm, + systolic murmur (gr 4/6 holosystolic ) Abdomen/GI: normal bowel sounds, + tenderness (mild- lower quadrants) Genitourinary - Male: + pertinent finding (panda in place) Back: normal inspection, no CVA tenderness Extremities/Musculoskelatal: + pertinent finding (grade 2 bilateral lower leg edema) 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 Hdz's recommendations POSSIBLE COMMUNITY-ACQUIRED PNEUMONIA Blood cultures, sputum cultures ordered Empiric vancomycin and imipenem Nebulizers every 6 hours Pulmonary consulted HYPOTENSION POSSIBLY SECONDARY TO: INTRAVASCULAR VOLUME DEPLETION Patient has received about 500 cc of fluids at the ER Blood pressure systolic in the 90s Patient has declined initiation of vasopressors if needed POSSIBLE SEPSIS Possible focus include: Rule out pneumonia, intra-abdominal infection, UTI Cultures sputum, urine, blood ordered Empiric vancomycin plus imipenem Lactic acid elevated cannot give additional fluids as patient was in CHF exacerbation POSSIBLE CARDIOGENIC ETIOLOGY Echocardiogram ordered ACUTE RENAL FAILURE ON CKD STAGE III Possible prerenal etiology due to poor oral intake and concomitant diuretic use , possibly secondary to sepsis, possibly secondary to hypotension, possible cardiorenal syndrome Given total of 500 cc IV fluids at this time Held off on IV fluids,in light of CHF exacerbation Nephrology has been consulted Patient declines hemodialysis if indicated RESPIRATORY ACIDOSIS PH 7.28, PCO2 50s Bipap ordered repeat ABGs ordered MILD TROPONIN ELEVATION Likely from demand ischemia from hypoxia, hypotension, sepsis serial trop ordered HYPOKALEMIA Replaced with IV potassium PANCYTOPENIA Patient has lower levels of WBC and platelets compared to baseline baseline Could be secondary to bone marrow suppression from infection Peripheral smear ordered ELEVATED BILIRUBIN LEVEL ordered daily liver profile DIABETES TYPE 2 held usual insulin 7030 placed on ISS DVT prophylaxis Heparin Lovenox contraindicated secondary to thrombocytopenia SCDs contraindicated because of bilateral leg edema -- patient's son informed of the patient's critical condition and that he may not survive patient's son agreeable and comfortable with the plan of care -- through the evening, patient continued to be dyspneic, tachypneic Bipap settings adjusted asystole noted [id number] patient pronounced family at the bedside Total time spent on discharge = This includes examination of the patient, discharge planning, medication reconciliation, and communication with other providers. Discharge Instructions Patient has
== END 2017-10-31 23:30 | disposition expired | DRG 871 ==
LOC: EDBD 13:30 → C.EDB 13:31 → C.2T 16:03 → UNDOADMIN 16:03 → ENRESERV 16:07
PROVIDERS: ADMIT Internal Medicine; ATTEND Internal Medicine
PROC: 0T9B7ZZ Drainage of Bladder, Via Natural or Artificial Opening (ICD-10-PCS; principal; 2017-10-31)
DX: A41.9 Sepsis, unspecified organism (principal); J18.9 Pneumonia, unspecified organism; N39.0 Urinary tract infection, site not specified; R65.20 Severe sepsis without septic shock; I50.43 Acute on chronic combined systolic (congestive) and diastolic (congestive) heart failure; J96.01 Acute respiratory failure with hypoxia; N17.9 Acute kidney failure, unspecified; I13.0 Hypertensive heart and chronic kidney disease with heart failure and stage 1 through stage 4 chronic kidney disease, or unspecified chronic kidney disease; I24.8 Other forms of acute ischemic heart disease; D61.818 Other pancytopenia; E87.2 Acidosis; I48.92 Unspecified atrial flutter; I95.89 Other hypotension; E86.0 Dehydration; E87.6 Hypokalemia; E78.5 Hyperlipidemia, unspecified; F03.90 Unspecified dementia, unspecified severity, without behavioral disturbance, psychotic disturbance, mood disturbance, and anxiety; I25.10 Atherosclerotic heart disease of native coronary artery without angina pectoris; I35.0 Nonrheumatic aortic (valve) stenosis; E11.22 Type 2 diabetes mellitus with diabetic chronic kidney disease; N18.3 Chronic kidney disease, stage 3 (moderate); K21.9 Gastro-esophageal reflux disease without esophagitis; M10.9 Gout, unspecified; I25.2 Old myocardial infarction; Z79.899 Other long term (current) drug therapy; Z79.4 Long term (current) use of insulin; Z79.82 Long term (current) use of aspirin; Z66 Do not resuscitate; Z86.14 Personal history of Methicillin resistant Staphylococcus aureus infection; Z95.1 Presence of aortocoronary bypass graft; Z87.891 Personal history of nicotine dependence; Z88.0 Allergy status to penicillin